=== PATIENT | female | born 1960 | race Caucasian/White ===

== ENCOUNTER 2023-04-30 09:10 | Emergency (ER) | payer BC ==
[~2023-04-30] VITALS: Ht 167.6 cm; Wt 97.7 kg
[2023-04-30] MEDS ORDERED: methocarbamoL 500 MG TAB PO ONE (10:15)
[2023-04-30] MEDS ORDERED: predniSONE 20 MG TAB PO ONE (10:15)
[2023-04-30] MEDS ORDERED: KETOROLAC 30 MG/ML 1ML VIAL IV ONE (10:15)
[2023-04-30] MEDS ORDERED: IBUP-1022 PO (13:23)
[2023-04-30] MEDS ORDERED: METH-1164 PO (13:23)
[2023-04-30] MEDS ORDERED: PRED20TA PO (13:23)
[2023-04-30 14:05] VITALS: BP 136/79; TEMP 98; O2SAT 96
== END 2023-04-30 14:11 | disposition home or self-care (01) ==
LOC: M ED 09:10 → EDBD 09:10 → M ED 14:11
DX: M25.552 Pain in left hip (principal); M47.816 Spondylosis without myelopathy or radiculopathy, lumbar region; M43.16 Spondylolisthesis, lumbar region; Z96.649 Presence of unspecified artificial hip joint; Z91.040 Latex allergy status
CPT/HCPCS: 72110; 73502; 96374; 99284; J1885; J7512

== ENCOUNTER → 2023-05-03 | Outpatient (CLI) | payer BC ==
[~2023-05-03] MED LIST: IBUP-1022 PO; METH-1164 PO; PRED20TA PO
[2023-05-03 13:42] LABS: BASO # 0.1 10^3/uL (0.0-0.2); BASO % 0.7 % (0.0-1.0); EOS # 0.1 10^3/uL (0.0-0.5); EOS % 1.5 % (0.0-3.0); HEMATOCRIT 43.6 % (36.0-47.0); LYMPH # 2.4 10^3/uL (1.5-5.0); LYMPH % 27.6 % (24.0-44.0); MEAN CORPUSCULAR HEMOGLOBIN 30.5 pg (27.0-33.0); MEAN CORPUSCULAR HGB CONC 32.1 g/dl (32.0-36.5); MONO # 0.9 10^3/uL (0.0-0.8); NEUTROPHILS # 5.1 10^3/uL (1.5-8.5); NEUTROPHILS % 59.9 % (36.0-66.0); PLATELET COUNT, AUTOMATED 325 10^3/uL (150-450); RED BLOOD COUNT 4.59 10^6/uL (4.00-5.40); WHITE BLOOD COUNT 8.6 10^3/uL (4.0-10.0)
[2023-05-03 14:17] LABS: ALBUMIN 3.7 G/DL (3.2-5.2); ALKALINE PHOSPHATASE 67 U/L (46-116); ALT/SGPT 22 U/L (7.0-40); AST/SGOT 20 U/L (<34); BILIRUBIN,TOTAL 0.5 MG/DL (0.3-1.2); BLOOD UREA NITROGEN 20 MG/DL (9-23); CALCIUM LEVEL 8.8 MG/DL (8.3-10.6); CARBON DIOXIDE LEVEL 29 MMOL/L (20-31); CHLORIDE LEVEL 103 MMOL/L (98-107); CHOLESTEROL LEVEL 248 MG/DL (<200); CHOLESTEROL RISK RATIO 3.55 (<5); CREATININE FOR GFR 0.85 MG/DL (0.55-1.30); GLOMERULAR FILTRATION RATE > 60.0 (>45); GLUCOSE, FASTING 87 MG/DL (74-106); HDL CHOLESTEROL 69.7 MG/DL (>40); LDL CHOLESTEROL 155.7 MG/DL (<100); NON-HDL-C 178.3 MG/DL; POTASSIUM SERUM 4.4 MMOL/L (3.5-5.1); SODIUM LEVEL 139 MMOL/L (136-145); TOTAL PROTEIN 6.5 G/DL (5.7-8.2); TRIGLYCERIDES LEVEL 113 MG/DL (<150)
== END ==
LOC: M LAB 12:26
PROVIDERS: ATTEND Physician Assistant
DX: E78.5 Hyperlipidemia, unspecified (principal)

== ENCOUNTER 2023-06-18 16:13 | Emergency (ER) | payer BC ==
[~2023-06-18] VITALS: Ht 167.6 cm; Wt 102.0 kg
[2023-06-18] MEDS ORDERED: MELO15TA28 PO (16:29)
[2023-06-18] MEDS ORDERED: CARB20TA PO (16:29)
[2023-06-18] MEDS ORDERED: LISI20TA33 PO (16:29)
[2023-06-18] MEDS ORDERED: AMOXICILLIN 500 MG CAP PO ONE (19:30)
[2023-06-18] MEDS ORDERED: AMOX500C PO (19:32)
[2023-06-18 19:43] VITALS: BP 163/94; TEMP 98.1; O2SAT 99
== END 2023-06-18 19:44 | disposition home or self-care (01) ==
LOC: M ED 16:13
DX: K04.7 Periapical abscess without sinus (principal); I10 Essential (primary) hypertension; Z91.040 Latex allergy status; Z79.2 Long term (current) use of antibiotics; Z79.899 Other long term (current) drug therapy

== ENCOUNTER 2023-09-16 21:13 | Emergency (ER) | payer BC ==
[~2023-09-16] VITALS: Ht 168.9 cm; Wt 100.0 kg
[~2023-09-16 21:13] MED LIST changes: +AMOX500C PO; +CARB20TA PO; +LISI20TA33 PO; +MELO15TA28 PO
[2023-09-16 22:03] LABS: BASO % 0.1 % (0.0-1.0); EOS % 0.6 % (0.0-3.0); HEMATOCRIT 43.5 % (36.0-47.0); HEMOGLOBIN 14.6 g/dl (12.0-15.5); LYMPH # 0.9 10^3/uL (1.5-5.0); LYMPH % 13.4 % (24.0-44.0); MEAN CORPUSCULAR HEMOGLOBIN 30.7 pg (27.0-33.0); MEAN CORPUSCULAR HGB CONC 33.6 g/dl (32.0-36.5); MEAN CORPUSCULAR VOLUME 91.6 fl (80.0-96.0); MONO # 0.6 10^3/uL (0.0-0.8); MONO % 8.7 % (2.0-8.0); NEUTROPHILS # 5.4 10^3/uL (1.5-8.5); NEUTROPHILS % 76.9 % (36.0-66.0); PLATELET COUNT, AUTOMATED 234 10^3/uL (150-450); RED BLOOD COUNT 4.75 10^6/uL (4.00-5.40)
[2023-09-16] MEDS: KETOROLAC 30 MG/ML 1ML VIAL IV ONE (22:32)
[2023-09-16 22:35] LABS: LIPASE 23 U/L (12-53)
[2023-09-16 22:42] LABS: CPK CREATINE PHOSPHOKINASE 112 U/L (34-145)
[2023-09-16 22:47] LABS: ALBUMIN 3.4 G/DL (3.2-5.2); ALKALINE PHOSPHATASE 59 U/L (46-116); ALT/SGPT 25 U/L (7.0-40); AST/SGOT 24 U/L (<34); BILIRUBIN,TOTAL 0.4 MG/DL (0.3-1.2); BLOOD UREA NITROGEN 12 MG/DL (9-23); CALCIUM LEVEL 8.4 MG/DL (8.3-10.6); CARBON DIOXIDE LEVEL 23 MMOL/L (20-31); CHLORIDE LEVEL 104 MMOL/L (98-107); CK-MB VALUE MASS < 1.0 NG/ML (<3.6); CREATININE FOR GFR 0.61 MG/DL (0.55-1.30); GLOMERULAR FILTRATION RATE > 60.0 (>45); GLUCOSE, FASTING 116 MG/DL (74-106); MB/CK RELATIVE INDEX 0.89 (< OR =4); POTASSIUM SERUM 3.9 MMOL/L (3.5-5.1); SODIUM LEVEL 136 MMOL/L (136-145); TOTAL PROTEIN 6.1 G/DL (5.7-8.2)
[2023-09-16] MEDS ORDERED: ISOVUE-370 76% 100ML VIAL As Ordered ONE (23:02)
[2023-09-16 23:13] LABS: CK-MB VALUE MASS < 1.0 NG/ML (<3.6)
[2023-09-16 23:15] LABS: CPK CREATINE PHOSPHOKINASE 104 U/L (34-145); MB/CK RELATIVE INDEX 0.96 (< OR =4)
[2023-09-16] MEDS ORDERED: ALBU8.5H INH (23:42)
[2023-09-16] MEDS ORDERED: VITAD1000T PO (23:42)
[2023-09-16] MEDS ORDERED: THERTAB19 PO (23:42)
[2023-09-16] MEDS ORDERED: OMEG10002 PO (23:42)
[2023-09-16] MEDS ORDERED: FLUT1BLS17 INH (23:42)
[2023-09-16] MEDS ORDERED: MELO7.5T35 PO (23:42)
[2023-09-16] MEDS ORDERED: HOME MED LIST COMPLETE! XX SCH (23:50)
[2023-09-17] MEDS ORDERED: PANT-23 PO (01:04)
[2023-09-17 01:30] VITALS: BP 133/74; TEMP 98.4; O2SAT 96
[2023-09-17] MEDS: PANTOPRAZOLE 40MG VIAL IV ONE (01:50)
== END 2023-09-17 02:20 | disposition home or self-care (01) ==
LOC: M ED 21:13
DX: K29.80 Duodenitis without bleeding (principal); I77.4 Celiac artery compression syndrome; R94.31 Abnormal electrocardiogram [ECG] [EKG]; M54.50 Low back pain, unspecified; I10 Essential (primary) hypertension; F10.10 Alcohol abuse, uncomplicated; Z91.040 Latex allergy status; Z79.51 Long term (current) use of inhaled steroids; Z79.810 Long term (current) use of selective estrogen receptor modulators (SERMs); Z79.899 Other long term (current) drug therapy
CPT/HCPCS: 71045; 71275; 74177; 80053; 81001; 82550; 82553; 83690; 84484; 85025; 87086; 93005; 93041; 94760; 96374; 96375; 99285; C9113; J1885; Q9967

== ENCOUNTER → 2023-09-27 | Outpatient (REF) | payer BC ==
[~2023-09-27] MED LIST changes: +ALBU8.5H INH; +FLUT1BLS17 INH; +MELO7.5T35 PO; +OMEG10002 PO; +PANT-23 PO; +THERTAB19 PO; +VITAD1000T PO
== END ==
LOC: M LAB REF 15:13
PROVIDERS: ATTEND Surgery
DX: R19.7 Diarrhea, unspecified (principal)

== ENCOUNTER → 2023-10-22 | Outpatient (CLI) | payer BC | LOC: M RAD 14:58 | PROVIDERS: ATTEND Physician Assistant | DX: R10.9 Unspecified abdominal pain (principal); D72.829 Elevated white blood cell count, unspecified ==

== ENCOUNTER → 2023-11-24 | Outpatient (CLI) | payer BC ==
[2023-11-24 15:59] LABS: HEMATOCRIT 38.4 % (36.0-47.0); HEMOGLOBIN 12.5 g/dl (12.0-15.5); MEAN CORPUSCULAR HEMOGLOBIN 30.6 pg (27.0-33.0); MEAN CORPUSCULAR HGB CONC 32.6 g/dl (32.0-36.5); MEAN CORPUSCULAR VOLUME 94.1 fl (80.0-96.0); PLATELET COUNT, AUTOMATED 318 10^3/uL (150-450); RED BLOOD COUNT 4.08 10^6/uL (4.00-5.40); WHITE BLOOD COUNT 8.6 10^3/uL (4.0-10.0)
[2023-11-24 16:28] LABS: ALBUMIN 3.9 G/DL (3.2-5.2); BILIRUBIN,TOTAL 0.4 MG/DL (0.3-1.2); CALCIUM LEVEL 9.3 MG/DL (8.3-10.6); CREATININE FOR GFR 1.25 MG/DL (0.55-1.30); GLOMERULAR FILTRATION RATE 45.8 (>45); POTASSIUM SERUM 4.2 MMOL/L (3.5-5.1); TOTAL PROTEIN 6.7 G/DL (5.7-8.2)
== END ==
LOC: M LAB 15:15
PROVIDERS: ATTEND Physician Assistant
DX: Z01.818 Encounter for other preprocedural examination (principal)

== ENCOUNTER 2023-12-29 18:18 | Inpatient (IN) | payer BC ==
[~2023-12-29] VITALS: Ht 167.6 cm; Wt 98.0 kg
[2023-12-29] MEDS: ACETAMINOPHEN 325 MG TAB PO ONE ×2 (19:05→19:55)
[2023-12-29 19:14] LABS: BASO % 0.1 % (0.0-1.0); HEMATOCRIT 37.1 % (36.0-47.0); HEMOGLOBIN 12.3 g/dl (12.0-15.5); LYMPH # 0.7 10^3/uL (1.5-5.0); LYMPH % 2.3 % (24.0-44.0); MEAN CORPUSCULAR HEMOGLOBIN 30.9 pg (27.0-33.0); MEAN CORPUSCULAR HGB CONC 33.2 g/dl (32.0-36.5); MEAN CORPUSCULAR VOLUME 93.2 fl (80.0-96.0); MONO # 1.6 10^3/uL (0.0-0.8); MONO % 5.3 % (2.0-8.0); NEUTROPHILS # 27.1 10^3/uL (1.5-8.5); NEUTROPHILS % 91.6 % (36.0-66.0); PLATELET COUNT, AUTOMATED 297 10^3/uL (150-450); RED BLOOD COUNT 3.98 10^6/uL (4.00-5.40); WHITE BLOOD COUNT 29.6 10^3/uL (4.0-10.0)
[2023-12-29 19:25] LABS: INR 1.16; PARTIAL THROMBOPLASTIN TIME 32.1 SECONDS (24.8-34.2); PROTHROMBIN TIME 14.5 SECONDS (12.5-14.5)
[2023-12-29 19:26] LABS: APPEARANCE, URINE HAZY (CLEAR); BACTERIA, URINE AUTO 1+ (NEGATIVE); BILIRUBIN, URINE AUTO NEGATIVE (NEGATIVE); BLOOD, URINE BLOOD 2+ (NEGATIVE); COLOR, URINE AMBER (YELLOW); GLUCOSE, URINE (UA) AUTO NEGATIVE (NEGATIVE); KETONE, URINE AUTO NEGATIVE (NEGATIVE); LEUKOCYTE ESTERASE, URINE AUTO NEGATIVE (NEGATIVE); MUCUS, URINE SMALL (NEGATIVE); NITRITE, URINE AUTO NEGATIVE (NEGATIVE); PROTEIN, URINE AUTO 2+ mg/dL (NEGATIVE); RBC, URINE AUTO 39 /HPF (0-3); SPECIFIC GRAVITY URINE AUTO 1.013 (1.002-1.035); SQUAMOUS EPITHELIAL CELL UR AU 0 /HPF (0-6); UROBILINOGEN, URINE AUTO 0.2 mg/dL (0.0-2.0); WBC, URINE AUTO 0 /HPF (0-3)
[2023-12-29 19:26] LABS: ABG BASE EXCESS 0.8 (-2.0-2.0); ABG HCO3 23.2 MMOL/L (22.0-26.0); ABG O2 SATURATION 97.6 % (95.0-99.0); ABG PARTIAL PRESSURE CO2 30.5 mmHg (35.0-45.0); ABG PARTIAL PRESSURE O2 90.2 mmHg (75.0-100.0); ABG STANDARD HCO3 25.2 MMOL/L. (22.0-26.0); ABG TOTAL CO2 24.1 MMOL/L (23.0-31.0); ABG pH (ARTERIAL) 7.499 UNITS (7.350-7.450)
[2023-12-29 19:29] LABS: APPEARANCE, URINE HAZY (CLEAR); BACTERIA, URINE AUTO NEGATIVE (NEGATIVE); BILIRUBIN, URINE AUTO NEGATIVE (NEGATIVE); BLOOD, URINE BLOOD 2+ (NEGATIVE); COLOR, URINE YELLOW (YELLOW); GLUCOSE, URINE (UA) AUTO NEGATIVE (NEGATIVE); KETONE, URINE AUTO NEGATIVE (NEGATIVE); LEUKOCYTE ESTERASE, URINE AUTO TRACE (NEGATIVE); MUCUS, URINE SMALL (NEGATIVE); NITRITE, URINE AUTO NEGATIVE (NEGATIVE); PROTEIN, URINE AUTO 2+ mg/dL (NEGATIVE); RBC, URINE AUTO 5 /HPF (0-3); SPECIFIC GRAVITY URINE AUTO 1.012 (1.002-1.035); SQUAMOUS EPITHELIAL CELL UR AU 0 /HPF (0-6); UROBILINOGEN, URINE AUTO 0.2 mg/dL (0.0-2.0); WBC, URINE AUTO 11 /HPF (0-3)
[2023-12-29] MEDS ORDERED: VANCOMYCIN HCL 2,000 MG in D5W 500 ML IV ONE (19:30)
[2023-12-29 19:35] LABS: C REACTIVE PROTEIN QUANTITATIV 12.2 MG/DL (<1.0)
[2023-12-29 19:36] LABS: ALBUMIN 3.1 G/DL (3.2-5.2); BILIRUBIN,DIRECT 0.3 MG/DL (<0.4); BILIRUBIN,TOTAL 0.9 MG/DL (0.3-1.2); CALCIUM LEVEL 8.3 MG/DL (8.3-10.6); CREATININE FOR GFR 1.14 MG/DL (0.55-1.30); GLOMERULAR FILTRATION RATE 50.9 (>45); POTASSIUM SERUM 3.9 MMOL/L (3.5-5.1); TOTAL PROTEIN 6.3 G/DL (5.7-8.2)
[2023-12-29 19:48] LABS: PROCALCITONIN 23.58 ng/ml
[2023-12-29] MEDS: NS 2,990 ML in IV 1 EA IV ONE (19:51)
[2023-12-29] MEDS: PIPERACILLIN/TAZOBACTAM SOD 4.5 GM in D5W MINI-BAG PLUS 50 ML IV ONE (19:52)
[2023-12-29] MEDS: IBUPROFEN 600MG TAB PO ONE (19:54)
[2023-12-29] MEDS: VANCOMYCIN HCL 1,000 MG, VIAL MATE ADAPTER 1 EACH in D5W 250 ML IV ONE ×2 (20:03→21:12)
[2023-12-29] MEDS ORDERED: ISOVUE-370 76% 100ML VIAL As Ordered ONE (20:05)
[2023-12-29] MEDS ORDERED: MOM 30ML SUSPENSION UDC PO PRN (22:45)
[2023-12-29] MEDS: LR 1,000 ML IV SCH (22:55)
[2023-12-29] MEDS ORDERED: LISI40TA4 PO (23:02)
[2023-12-29] MEDS ORDERED: FLOM0.4C39 PO (23:02)
[2023-12-29] MEDS ORDERED: OXYB5TAB14 PO (23:02)
[2023-12-29] MEDS ORDERED: HOME MED LIST COMPLETE! XX SCH (23:05)
[2023-12-30] MEDS: ERTAPENEM SODIUM 1 GM in NS MINI-BAG PLUS 50 ML IV SCH (01:57)
[2023-12-30] MEDS ORDERED: PIPERACILLIN/TAZOBACTAM SOD 4.5 GM in D5W MINI-BAG PLUS 50 ML IV SCH (02:00)
[2023-12-30] MEDS: IPRATROPIUM 0.5MG/ALBUTEROL 2.5MG INH SOL UD 3ML (DUONEB) NEB PRN (02:35)
[2023-12-30 06:01] LABS: HEMATOCRIT 32.7 % (36.0-47.0); HEMOGLOBIN 10.7 g/dl (12.0-15.5); MEAN CORPUSCULAR HEMOGLOBIN 30.3 pg (27.0-33.0); MEAN CORPUSCULAR HGB CONC 32.7 g/dl (32.0-36.5); MEAN CORPUSCULAR VOLUME 92.6 fl (80.0-96.0); PLATELET COUNT, AUTOMATED 199 10^3/uL (150-450); RED BLOOD COUNT 3.53 10^6/uL (4.00-5.40); WHITE BLOOD COUNT 17.2 10^3/uL (4.0-10.0)
[2023-12-30 06:34] LABS: CALCIUM LEVEL 7.3 MG/DL (8.3-10.6); CREATININE FOR GFR 0.99 MG/DL (0.55-1.30); GLOMERULAR FILTRATION RATE 59.9 (>45); POTASSIUM SERUM 3.6 MMOL/L (3.5-5.1)
[2023-12-30] MEDS ORDERED: ALBUTEROL 90 MCG/ACT 8GM HFA INHALER INH PRN (07:05)
[2023-12-30] MEDS ORDERED: carBAMazepine 200MG TABLET PO PRN (07:05)
[2023-12-30] MEDS ORDERED: oxyBUTYnin 5 MG TAB PO PRN (07:05)
[2023-12-30 07:33] LABS: VANCOMYCIN RANDOM 14.6 UG/ML
[2023-12-30] MEDS: VANCOMYCIN HCL 1,000 MG, VIAL MATE ADAPTER 1 EACH in NS 250 ML IV SCH (08:44)
[2023-12-30] MEDS: MAG SULF 1GM/100ML (MAG RUN) 1 GM in IV 1 EA IV SCH (08:46)
[2023-12-30] MEDS: VITAMIN D 1,000 INTERNATIONAL UNITS TABLET PO SCH (08:47)
[2023-12-30] MEDS: HEPARIN SOD (PORCINE) 5000UNITS/ML 1ML VIAL/SYRINGE SC SCH (08:53)
[2023-12-30] MEDS: ADVAIR HFA 230/21MCG INHALER INH SCH (10:00)
[2023-12-30] MEDS: ACETAMINOPHEN TAB 650MG DOSE (2X325MG) PO PRN (11:58)
[2023-12-30] MEDS: ACETAMINOPHEN 325 MG TAB PO ONE (13:27)
[2023-12-30] MEDS: LACTOBACILLUS ACIDOPHILUS CAP (BACID) PO SCH (14:07)
[2023-12-30] MEDS ORDERED: MAG SULF 1GM/100ML (MAG RUN) 1 GM in IV 1 EA IV SCH (16:00)
[2023-12-30] MEDS: ACETAMINOPHEN 500 MG TAB PO PRN (18:48)
[2023-12-30 20:50] VITALS: BP 96/57; TEMP 97.5; O2SAT 93
[2023-12-30 21:01] VITALS: BP 100/40
[2023-12-30] MEDS: TAMSULOSIN 0.4 MG CAP PO SCH (21:20)
[2023-12-31] VITALS (12 sets, daily range): BP systolic 112–153; BP diastolic 63–88; TEMP 97.2–101.8; O2SAT 90–97
[2023-12-31 06:13] LABS: HEMATOCRIT 28.9 % (36.0-47.0); HEMOGLOBIN 9.6 g/dl (12.0-15.5); MEAN CORPUSCULAR HEMOGLOBIN 30.5 pg (27.0-33.0); MEAN CORPUSCULAR HGB CONC 33.2 g/dl (32.0-36.5); MEAN CORPUSCULAR VOLUME 91.7 fl (80.0-96.0); PLATELET COUNT, AUTOMATED 179 10^3/uL (150-450); RED BLOOD COUNT 3.15 10^6/uL (4.00-5.40); WHITE BLOOD COUNT 12.8 10^3/uL (4.0-10.0)
[2023-12-31 06:30] LABS: BLOOD UREA NITROGEN 16 MG/DL (9-23); CALCIUM LEVEL 7.6 MG/DL (8.3-10.6); CARBON DIOXIDE LEVEL 25 MMOL/L (20-31); CHLORIDE LEVEL 107 MMOL/L (98-107); CREATININE FOR GFR 0.93 MG/DL (0.55-1.30); GLOMERULAR FILTRATION RATE > 60.0 (>45); GLUCOSE, FASTING 119 MG/DL (74-106); MAGNESIUM LEVEL 2.1 MG/DL (1.8-2.4); SODIUM LEVEL 138 MMOL/L (136-145)
[2023-12-31 06:45] LABS: LYMPHOCYTES 3 % (16-44); MONOCYTES 3 % (0-5); NEUTROPHILS 86 % (28-66); PLATELET ESTIMATE NORMAL (NORMAL)
[2023-12-31] MEDS: MORPHINE 4 MG/ML 1ML VIAL IV PRN (09:11)
[2023-12-31] MEDS ORDERED: SODIUM CHLORIDE 0.9% INJ 10 ML SYR IV PRN (17:15)
[2023-12-31] MEDS: SODIUM CHLORIDE 0.9% INJ 10 ML SYR IV SCH (17:46)
[2024-01-01] VITALS (7 sets, daily range): BP systolic 138–141; BP diastolic 71–82; TEMP 97.7–100.6; O2SAT 92–95
[2024-01-01 06:20] LABS: HEMATOCRIT 26.7 % (36.0-47.0); MEAN CORPUSCULAR HEMOGLOBIN 30.6 pg (27.0-33.0); MEAN CORPUSCULAR HGB CONC 33.7 g/dl (32.0-36.5); MEAN CORPUSCULAR VOLUME 90.8 fl (80.0-96.0); PLATELET COUNT, AUTOMATED 187 10^3/uL (150-450); RED BLOOD COUNT 2.94 10^6/uL (4.00-5.40); WHITE BLOOD COUNT 10.3 10^3/uL (4.0-10.0)
[2024-01-01 06:51] LABS: BLOOD UREA NITROGEN 11 MG/DL (9-23); CALCIUM LEVEL 7.6 MG/DL (8.3-10.6); CARBON DIOXIDE LEVEL 26 MMOL/L (20-31); CHLORIDE LEVEL 107 MMOL/L (98-107); CREATININE FOR GFR 0.76 MG/DL (0.55-1.30); GLOMERULAR FILTRATION RATE > 60.0 (>45); GLUCOSE, FASTING 99 MG/DL (74-106); MAGNESIUM LEVEL 1.8 MG/DL (1.8-2.4); POTASSIUM SERUM 3.5 MMOL/L (3.5-5.1); SODIUM LEVEL 138 MMOL/L (136-145)
[2024-01-01 06:52] LABS: EOSINOPHILS 1 % (0-3); LYMPHOCYTES 8 % (16-44); MONOCYTES 3 % (0-5); NEUTROPHILS 85 % (28-66)
[2024-01-01 06:55] LABS: PLATELET ESTIMATE NORMAL (NORMAL)
[2024-01-01] MEDS: PANTOPRAZOLE 40MG VIAL IV SCH (13:52)
[2024-01-02 04:00] VITALS: BP 129/68; TEMP 97.5; O2SAT 90
[2024-01-02 06:10] LABS: BASO % 0.4 % (0.0-1.0); EOS # 0.3 10^3/uL (0.0-0.5); EOS % 2.4 % (0.0-3.0); HEMOGLOBIN 9.1 g/dl (12.0-15.5); LYMPH # 1.3 10^3/uL (1.5-5.0); LYMPH % 12.9 % (24.0-44.0); MEAN CORPUSCULAR HEMOGLOBIN 29.4 pg (27.0-33.0); MEAN CORPUSCULAR HGB CONC 32.5 g/dl (32.0-36.5); MEAN CORPUSCULAR VOLUME 90.6 fl (80.0-96.0); MONO # 1.3 10^3/uL (0.0-0.8); MONO % 12.8 % (2.0-8.0); NEUTROPHILS # 7.3 10^3/uL (1.5-8.5); NEUTROPHILS % 70.7 % (36.0-66.0); PLATELET COUNT, AUTOMATED 230 10^3/uL (150-450); RED BLOOD COUNT 3.09 10^6/uL (4.00-5.40); WHITE BLOOD COUNT 10.3 10^3/uL (4.0-10.0)
[2024-01-02 06:41] LABS: BLOOD UREA NITROGEN 9 MG/DL (9-23); CALCIUM LEVEL 7.7 MG/DL (8.3-10.6); CARBON DIOXIDE LEVEL 26 MMOL/L (20-31); CHLORIDE LEVEL 108 MMOL/L (98-107); CREATININE FOR GFR 0.76 MG/DL (0.55-1.30); GLOMERULAR FILTRATION RATE > 60.0 (>45); GLUCOSE, FASTING 89 MG/DL (74-106); MAGNESIUM LEVEL 1.6 MG/DL (1.8-2.4); POTASSIUM SERUM 3.5 MMOL/L (3.5-5.1); SODIUM LEVEL 141 MMOL/L (136-145)
[2024-01-02] MEDS: MAGNESIUM OXIDE 400MG TAB (MAG-OX) PO SCH (07:59)
[2024-01-02] MEDS ORDERED: AMIKACIN 1000 MG/4 ML IV ONE (08:50)
[2024-01-02] MEDS ORDERED: MEROPENEM INJ 2 GM in NS 100 ML IV SCH (08:50)
[2024-01-02 09:50] LABS: ERYTHROCYTE SEDIMENTATION RATE 56 mm/hr (0-30)
[2024-01-02 10:00] LABS: PROCALCITONIN 3.88 ng/ml
[2024-01-02] MEDS: MEROPENEM INJ 1 GM in IV 1 EA IV SCH (11:06)
[2024-01-02 11:08] VITALS: TEMP 99.9
[2024-01-02 12:00] VITALS: BP 151/79; TEMP 98.8; O2SAT 92
[2024-01-02] MEDS: D5W IV ONE (12:36)
[2024-01-02] MEDS: AMIKACIN SULFATE IV ONE (12:36)
[2024-01-02 19:45] VITALS: BP 127/63; TEMP 99.8; O2SAT 92
[2024-01-03] VITALS (9 sets, daily range): BP systolic 144–155; BP diastolic 72–88; TEMP 97–100.7; O2SAT 93–97
[2024-01-03 06:27] LABS: BASO # 0.1 10^3/uL (0.0-0.2); BASO % 0.4 % (0.0-1.0); EOS # 0.2 10^3/uL (0.0-0.5); EOS % 1.5 % (0.0-3.0); HEMATOCRIT 28.1 % (36.0-47.0); HEMOGLOBIN 9.4 g/dl (12.0-15.5); LYMPH # 1.2 10^3/uL (1.5-5.0); LYMPH % 10.2 % (24.0-44.0); MEAN CORPUSCULAR HEMOGLOBIN 30.2 pg (27.0-33.0); MEAN CORPUSCULAR HGB CONC 33.5 g/dl (32.0-36.5); MEAN CORPUSCULAR VOLUME 90.4 fl (80.0-96.0); MONO # 1.6 10^3/uL (0.0-0.8); NEUTROPHILS # 8.3 10^3/uL (1.5-8.5); NEUTROPHILS % 72.1 % (36.0-66.0); PLATELET COUNT, AUTOMATED 261 10^3/uL (150-450); RED BLOOD COUNT 3.11 10^6/uL (4.00-5.40); WHITE BLOOD COUNT 11.5 10^3/uL (4.0-10.0)
[2024-01-03 06:42] LABS: BLOOD UREA NITROGEN 7 MG/DL (9-23); CALCIUM LEVEL 8.1 MG/DL (8.3-10.6); CARBON DIOXIDE LEVEL 28 MMOL/L (20-31); CHLORIDE LEVEL 106 MMOL/L (98-107); CREATININE FOR GFR 0.73 MG/DL (0.55-1.30); GLOMERULAR FILTRATION RATE > 60.0 (>45); GLUCOSE, FASTING 88 MG/DL (74-106); MAGNESIUM LEVEL 1.6 MG/DL (1.8-2.4); POTASSIUM SERUM 3.3 MMOL/L (3.5-5.1); SODIUM LEVEL 141 MMOL/L (136-145)
[2024-01-03] MEDS: POTASSIUM CHLORIDE 10MEQ SR TABLET PO STA (07:57)
[2024-01-03] MEDS: MAG SULF 1GM/100ML (MAG RUN) 1 GM in IV 1 EA IV STA (07:58)
[2024-01-03] MEDS ORDERED: propofoL 200 MG/20 ML VIAL As Ordered ONE (12:28)
[2024-01-03] MEDS ORDERED: LIDOCAINE 2% 100MG/5ML SDV (FOR ANES.) As Ordered ONE (12:28)
[2024-01-03] MEDS ORDERED: NEULUMEX 0.1% SUSPENSION 450ML BOTTLE (FORMERLY VOLUMEN) As Ordered ONE (13:10)
[2024-01-03] MEDS ORDERED: GLUCAGON INJ 1MG VIAL As Ordered ONE (13:44)
[2024-01-03] MEDS: MEROPENEM INJ 1 GM in IV 1 EA IV SCH (15:50)
[2024-01-03] MEDS ORDERED: SODIUM CHLORIDE 0.9% INJ 10 ML SYR IV PRN (17:45)
[2024-01-03] MEDS: SODIUM CHLORIDE 0.9% INJ 10 ML SYR IV SCH (18:10)
[2024-01-04] VITALS (8 sets, daily range): BP systolic 110–146; BP diastolic 62–87; TEMP 97.4–97.7; O2SAT 93–95
[2024-01-04 06:43] LABS: BASO # 0.1 10^3/uL (0.0-0.2); BASO % 0.5 % (0.0-1.0); EOS # 0.1 10^3/uL (0.0-0.5); HEMATOCRIT 28.4 % (36.0-47.0); HEMOGLOBIN 9.6 g/dl (12.0-15.5); LYMPH # 1.8 10^3/uL (1.5-5.0); LYMPH % 13.7 % (24.0-44.0); MEAN CORPUSCULAR HEMOGLOBIN 30.2 pg (27.0-33.0); MEAN CORPUSCULAR HGB CONC 33.8 g/dl (32.0-36.5); MEAN CORPUSCULAR VOLUME 89.3 fl (80.0-96.0); MONO # 1.9 10^3/uL (0.0-0.8); MONO % 14.2 % (2.0-8.0); NEUTROPHILS # 8.7 10^3/uL (1.5-8.5); NEUTROPHILS % 66.4 % (36.0-66.0); PLATELET COUNT, AUTOMATED 323 10^3/uL (150-450); RED BLOOD COUNT 3.18 10^6/uL (4.00-5.40); WHITE BLOOD COUNT 13.1 10^3/uL (4.0-10.0)
[2024-01-04 07:11] LABS: BLOOD UREA NITROGEN 7 MG/DL (9-23); CARBON DIOXIDE LEVEL 27 MMOL/L (20-31); CHLORIDE LEVEL 102 MMOL/L (98-107); CREATININE FOR GFR 0.66 MG/DL (0.55-1.30); GLOMERULAR FILTRATION RATE > 60.0 (>45); GLUCOSE, FASTING 81 MG/DL (74-106); MAGNESIUM LEVEL 1.6 MG/DL (1.8-2.4); POTASSIUM SERUM 3.5 MMOL/L (3.5-5.1); SODIUM LEVEL 138 MMOL/L (136-145)
[2024-01-04] MEDS: MAG SULF 1GM/100ML (MAG RUN) 1 GM in IV 1 EA IV SCH (07:51)
[2024-01-04] MEDS: ERTAPENEM SODIUM 1 GM in NS MINI-BAG PLUS 50 ML IV SCH (20:17)
[2024-01-05] VITALS (7 sets, daily range): BP systolic 108–137; BP diastolic 56–78; TEMP 96.8–97.7; O2SAT 89–95
[2024-01-05 06:07] LABS: BASO % 0.3 % (0.0-1.0); EOS # 0.2 10^3/uL (0.0-0.5); EOS % 1.4 % (0.0-3.0); HEMATOCRIT 29.2 % (36.0-47.0); HEMOGLOBIN 9.5 g/dl (12.0-15.5); LYMPH # 2.1 10^3/uL (1.5-5.0); LYMPH % 16.1 % (24.0-44.0); MEAN CORPUSCULAR HEMOGLOBIN 29.8 pg (27.0-33.0); MEAN CORPUSCULAR HGB CONC 32.5 g/dl (32.0-36.5); MEAN CORPUSCULAR VOLUME 91.5 fl (80.0-96.0); MONO # 1.4 10^3/uL (0.0-0.8); MONO % 10.9 % (2.0-8.0); NEUTROPHILS # 9.1 10^3/uL (1.5-8.5); NEUTROPHILS % 68.4 % (36.0-66.0); PLATELET COUNT, AUTOMATED 408 10^3/uL (150-450); RED BLOOD COUNT 3.19 10^6/uL (4.00-5.40); WHITE BLOOD COUNT 13.3 10^3/uL (4.0-10.0)
[2024-01-05 06:38] LABS: BLOOD UREA NITROGEN 9 MG/DL (9-23); CARBON DIOXIDE LEVEL 32 MMOL/L (20-31); CHLORIDE LEVEL 103 MMOL/L (98-107); CREATININE FOR GFR 0.72 MG/DL (0.55-1.30); GLOMERULAR FILTRATION RATE > 60.0 (>45); GLUCOSE, FASTING 91 MG/DL (74-106); MAGNESIUM LEVEL 1.9 MG/DL (1.8-2.4); POTASSIUM SERUM 3.8 MMOL/L (3.5-5.1); SODIUM LEVEL 140 MMOL/L (136-145)
[2024-01-05 09:15] LABS: PROCALCITONIN 1.09 ng/ml
[2024-01-06 04:30] VITALS: BP 134/72; TEMP 97.5; O2SAT 93
[2024-01-06 06:30] LABS: BASO % 0.3 % (0.0-1.0); EOS # 0.3 10^3/uL (0.0-0.5); EOS % 1.7 % (0.0-3.0); HEMATOCRIT 28.4 % (36.0-47.0); HEMOGLOBIN 9.2 g/dl (12.0-15.5); LYMPH # 2.2 10^3/uL (1.5-5.0); LYMPH % 14.3 % (24.0-44.0); MEAN CORPUSCULAR HEMOGLOBIN 29.8 pg (27.0-33.0); MEAN CORPUSCULAR HGB CONC 32.4 g/dl (32.0-36.5); MEAN CORPUSCULAR VOLUME 91.9 fl (80.0-96.0); MONO # 1.4 10^3/uL (0.0-0.8); NEUTROPHILS # 10.9 10^3/uL (1.5-8.5); NEUTROPHILS % 72.4 % (36.0-66.0); PLATELET COUNT, AUTOMATED 480 10^3/uL (150-450); RED BLOOD COUNT 3.09 10^6/uL (4.00-5.40)
[2024-01-06 08:00] VITALS: BP 130/73; TEMP 97.3; O2SAT 95
[2024-01-06 08:40] LABS: BLOOD UREA NITROGEN 8 MG/DL (9-23); CALCIUM LEVEL 7.9 MG/DL (8.3-10.6); CARBON DIOXIDE LEVEL 31 MMOL/L (20-31); CHLORIDE LEVEL 103 MMOL/L (98-107); CREATININE FOR GFR 0.71 MG/DL (0.55-1.30); GLOMERULAR FILTRATION RATE > 60.0 (>45); GLUCOSE, FASTING 87 MG/DL (74-106); SODIUM LEVEL 139 MMOL/L (136-145)
[2024-01-06] MEDS: PANTOPRAZOLE 40MG TAB (PROTONIX) PO SCH (08:47)
[2024-01-06] MEDS: COLCHICINE 0.6 MG TABLET PO ONE ×2 (10:21→11:26)
[2024-01-06 11:40] LABS: URIC ACID 5.9 MG/DL (3.1-7.8)
[2024-01-06 12:00] VITALS: BP 136/78; TEMP 97.3; O2SAT 96
[2024-01-06] MEDS ORDERED: RISATAB3 PO ×2 (13:25→13:48)
[2024-01-06] MEDS ORDERED: COLC0.6T47 PO ×2 (13:25→13:47)
[2024-01-06] MEDS ORDERED: ERTA1INJ3 IV (13:25)
[2024-01-06] MEDS ORDERED: HEPAINJ4 IV ×2 (13:25)
[2024-01-06] MEDS ORDERED: SLF IV ×2 (13:25)
[2024-01-07] MEDS ORDERED: COLCHICINE 0.6 MG TABLET PO SCH (09:00)
== END 2024-01-06 16:05 | disposition home health service (06) | DRG 720 ==
LOC: M ED 18:18 → EDBD 18:18 → M ED INP 22:45 → M MSPAV 12-30 20:50
PROVIDERS: ADMIT Internal Medicine; ATTEND Internal Medicine
PROC: 0DJ08ZZ Inspection of Upper Intestinal Tract, Via Natural or Artificial Opening Endoscopic (ICD-10-PCS; principal; 2024-01-03 08:30)
DX: A41.51 Sepsis due to Escherichia coli [E. coli] (principal); K68.2 Retroperitoneal fibrosis; I77.4 Celiac artery compression syndrome; E83.42 Hypomagnesemia; K56.7 Ileus, unspecified; N13.9 Obstructive and reflux uropathy, unspecified; N13.6 Pyonephrosis; R65.20 Severe sepsis without septic shock; I10 Essential (primary) hypertension; J45.909 Unspecified asthma, uncomplicated; K21.9 Gastro-esophageal reflux disease without esophagitis; R93.3 Abnormal findings on diagnostic imaging of other parts of digestive tract; G50.0 Trigeminal neuralgia; B96.20 Unspecified Escherichia coli [E. coli] as the cause of diseases classified elsewhere; N11.9 Chronic tubulo-interstitial nephritis, unspecified; R00.8 Other abnormalities of heart beat; M10.9 Gout, unspecified; Z79.899 Other long term (current) drug therapy; Z96.643 Presence of artificial hip joint, bilateral; Z88.6 Allergy status to analgesic agent; Z91.040 Latex allergy status; Z87.891 Personal history of nicotine dependence

== ENCOUNTER → 2024-01-10 | Outpatient (REF) | payer BC ==
[~2024-01-10] MED LIST changes: +COLC0.6T47 PO; +ERTA1INJ3 IV; +FLOM0.4C39 PO; +HEPAINJ4 IV; +LISI40TA4 PO; +OXYB5TAB14 PO; +RISATAB3 PO; +SLF IV
[2024-01-10 13:34] LABS: BASO # 0.1 10^3/uL (0.0-0.2); BASO % 0.4 % (0.0-1.0); EOS # 0.4 10^3/uL (0.0-0.5); EOS % 2.7 % (0.0-3.0); HEMOGLOBIN 10.7 g/dl (12.0-15.5); LYMPH % 14.9 % (24.0-44.0); MEAN CORPUSCULAR HEMOGLOBIN 29.7 pg (27.0-33.0); MEAN CORPUSCULAR HGB CONC 31.5 g/dl (32.0-36.5); MEAN CORPUSCULAR VOLUME 94.4 fl (80.0-96.0); MONO # 1.7 10^3/uL (0.0-0.8); MONO % 12.5 % (2.0-8.0); NEUTROPHILS # 9.3 10^3/uL (1.5-8.5); NEUTROPHILS % 68.3 % (36.0-66.0); PLATELET COUNT, AUTOMATED 623 10^3/uL (150-450); WHITE BLOOD COUNT 13.7 10^3/uL (4.0-10.0)
[2024-01-10 14:01] LABS: BLOOD UREA NITROGEN 11 MG/DL (9-23); CALCIUM LEVEL 8.6 MG/DL (8.3-10.6); CARBON DIOXIDE LEVEL 26 MMOL/L (20-31); CHLORIDE LEVEL 105 MMOL/L (98-107); CREATININE FOR GFR 0.79 MG/DL (0.55-1.30); GLOMERULAR FILTRATION RATE > 60.0 (>45); GLUCOSE, FASTING 79 MG/DL (74-106); POTASSIUM SERUM 4.6 MMOL/L (3.5-5.1); SODIUM LEVEL 139 MMOL/L (136-145)
== END ==
LOC: M LAB REF 12:47
PROVIDERS: ATTEND Family Medicine
DX: N13.2 Hydronephrosis with renal and ureteral calculous obstruction (principal)

== ENCOUNTER 2024-01-26 16:02 | Emergency (ER) | payer BC ==
[2024-01-26 17:21] LABS: BASO % 0.2 % (0.0-1.0); EOS % 0.2 % (0.0-3.0); HEMATOCRIT 31.1 % (36.0-47.0); LYMPH # 1.2 10^3/uL (1.5-5.0); LYMPH % 6.9 % (24.0-44.0); MEAN CORPUSCULAR HEMOGLOBIN 28.9 pg (27.0-33.0); MEAN CORPUSCULAR HGB CONC 32.2 g/dl (32.0-36.5); MEAN CORPUSCULAR VOLUME 89.9 fl (80.0-96.0); MONO # 2.5 10^3/uL (0.0-0.8); MONO % 14.6 % (2.0-8.0); NEUTROPHILS # 13.1 10^3/uL (1.5-8.5); NEUTROPHILS % 77.6 % (36.0-66.0); PLATELET COUNT, AUTOMATED 344 10^3/uL (150-450); RED BLOOD COUNT 3.46 10^6/uL (4.00-5.40); WHITE BLOOD COUNT 16.9 10^3/uL (4.0-10.0)
[2024-01-26 17:45] LABS: CALCIUM LEVEL 8.3 MG/DL (8.3-10.6); CREATININE FOR GFR 1.21 MG/DL (0.55-1.30); GLOMERULAR FILTRATION RATE 47.5 (>45); POTASSIUM SERUM 4.1 MMOL/L (3.5-5.1)
[2024-01-26 17:47] LABS: THYROID STIMULATING HORMONE 1.747 uIU/ML (0.55-4.78)
[2024-01-26] MEDS: ACETAMINOPHEN 500 MG TAB PO ONE (18:04)
[2024-01-26 19:15] LABS: ALBUMIN 2.5 G/DL (3.2-5.2); BILIRUBIN,DIRECT 0.4 MG/DL (<0.4); TOTAL PROTEIN 6.5 G/DL (5.7-8.2)
[2024-01-26 19:21] LABS: APPEARANCE, URINE CLOUDY (CLEAR); APPEARANCE, URINE HAZY (CLEAR); BACTERIA, URINE AUTO 3+ (NEGATIVE); BACTERIA, URINE AUTO NEGATIVE (NEGATIVE); BILIRUBIN, URINE AUTO NEGATIVE (NEGATIVE); BLOOD, URINE BLOOD 1+ (NEGATIVE); BLOOD, URINE BLOOD 2+ (NEGATIVE); COLOR, URINE AMBER (YELLOW); GLUCOSE, URINE (UA) AUTO NEGATIVE (NEGATIVE); KETONE, URINE AUTO NEGATIVE (NEGATIVE); KETONE, URINE AUTO TRACE mg/dL (NEGATIVE); LEUKOCYTE ESTERASE, URINE AUTO 3+ (NEGATIVE); MUCUS, URINE SMALL (NEGATIVE); NITRITE, URINE AUTO NEGATIVE (NEGATIVE); PROTEIN, URINE AUTO 3+ mg/dL (NEGATIVE); RBC, URINE AUTO 15 /HPF (0-3); RBC, URINE AUTO 6 /HPF (0-3); SPECIFIC GRAVITY URINE AUTO 1.012 (1.002-1.035); SPECIFIC GRAVITY URINE AUTO 1.019 (1.002-1.035); SQUAMOUS EPITHELIAL CELL UR AU 0 /HPF (0-6); SQUAMOUS EPITHELIAL CELL UR AU 1 /HPF (0-6); WBC, URINE AUTO 22 /HPF (0-3); WBC, URINE AUTO 71 /HPF (0-3)
[2024-01-26] MEDS: NS 1,000 ML IV ONE (19:25)
[2024-01-26 19:32] VITALS: TEMP 97.8
[2024-01-26 19:46] LABS: PROCALCITONIN 0.79 ng/ml
[2024-01-26 20:16] VITALS: BP 109/75; O2SAT 100
== END 2024-01-26 20:43 | disposition left against medical advice (07) ==
LOC: M ED 16:02
DX: R55 Syncope and collapse (principal); N10 Acute pyelonephritis; A41.9 Sepsis, unspecified organism; J44.9 Chronic obstructive pulmonary disease, unspecified; I10 Essential (primary) hypertension; F10.10 Alcohol abuse, uncomplicated; Z91.040 Latex allergy status; Z96.649 Presence of unspecified artificial hip joint; Z79.52 Long term (current) use of systemic steroids; Z79.899 Other long term (current) drug therapy; Z53.9 Procedure and treatment not carried out, unspecified reason

== ENCOUNTER 2024-01-26 21:55 | Inpatient (IN) | payer BC ==
[~2024-01-26] VITALS: Ht 170.2 cm; Wt 91.6 kg
[2024-01-27] MEDS ORDERED: ISOVUE-370 76% 100ML VIAL As Ordered ONE (00:04)
[2024-01-27] MEDS: LR 1,000 ML IV SCH ×2 (00:45→03:56)
[2024-01-27] MEDS ORDERED: HOME MED LIST COMPLETE! XX SCH (01:30)
[2024-01-27 02:41] VITALS: BP 140/79; TEMP 97.2; O2SAT 98
[2024-01-27] MEDS ORDERED: ALBUTEROL 90 MCG/ACT 8GM HFA INHALER INH PRN (02:50)
[2024-01-27] MEDS: ERTAPENEM SODIUM 1 GM in NS MINI-BAG PLUS 50 ML IV ONE (03:24)
[2024-01-27 05:46] LABS: BASO % 0.2 % (0.0-1.0); EOS # 0.1 10^3/uL (0.0-0.5); EOS % 0.4 % (0.0-3.0); HEMATOCRIT 29.7 % (36.0-47.0); HEMOGLOBIN 9.6 g/dl (12.0-15.5); LYMPH # 1.3 10^3/uL (1.5-5.0); LYMPH % 8.1 % (24.0-44.0); MEAN CORPUSCULAR HEMOGLOBIN 29.3 pg (27.0-33.0); MEAN CORPUSCULAR HGB CONC 32.3 g/dl (32.0-36.5); MEAN CORPUSCULAR VOLUME 90.5 fl (80.0-96.0); MONO # 2.1 10^3/uL (0.0-0.8); MONO % 13.2 % (2.0-8.0); NEUTROPHILS % 77.4 % (36.0-66.0); PLATELET COUNT, AUTOMATED 329 10^3/uL (150-450); RED BLOOD COUNT 3.28 10^6/uL (4.00-5.40); WHITE BLOOD COUNT 15.6 10^3/uL (4.0-10.0)
[2024-01-27 06:32] LABS: ALBUMIN 2.2 G/DL (3.2-5.2); BILIRUBIN,TOTAL 0.8 MG/DL (0.3-1.2); CALCIUM LEVEL 8.3 MG/DL (8.3-10.6); CREATININE FOR GFR 1.02 MG/DL (0.55-1.30); GLOMERULAR FILTRATION RATE 57.9 (>45); MAGNESIUM LEVEL 1.7 MG/DL (1.8-2.4); POTASSIUM SERUM 3.8 MMOL/L (3.5-5.1); TOTAL PROTEIN 5.8 G/DL (5.7-8.2)
[2024-01-27] MEDS: ADVAIR HFA 115/21MCG INHALER INH SCH (07:42)
[2024-01-27] MEDS: HEPARIN SOD (PORCINE) 5000UNITS/ML 1ML VIAL/SYRINGE SC SCH (08:01)
[2024-01-27 08:02] VITALS: BP_SYST 107; BP_SYST 110; BP_SYST 116; BP_DIAS 60; BP_DIAS 69; BP_DIAS 70
[2024-01-27 12:00] VITALS: BP 125/67; TEMP 97.9; O2SAT 94
[2024-01-27 20:40] VITALS: BP 108/60; TEMP 98.1; O2SAT 95
[2024-01-28] MEDS: ERTAPENEM SODIUM 1 GM in NS MINI-BAG PLUS 50 ML IV SCH (02:03)
[2024-01-28 04:32] VITALS: BP 136/81; TEMP 98.1; O2SAT 96
[2024-01-28 08:00] VITALS: BP 108/66; TEMP 97.6; O2SAT 96
[2024-01-28 10:48] LABS: BASO % 0.4 % (0.0-1.0); EOS # 0.1 10^3/uL (0.0-0.5); EOS % 1.3 % (0.0-3.0); HEMATOCRIT 30.8 % (36.0-47.0); HEMOGLOBIN 9.6 g/dl (12.0-15.5); LYMPH # 1.1 10^3/uL (1.5-5.0); LYMPH % 10.8 % (24.0-44.0); MEAN CORPUSCULAR HEMOGLOBIN 28.5 pg (27.0-33.0); MEAN CORPUSCULAR HGB CONC 31.2 g/dl (32.0-36.5); MEAN CORPUSCULAR VOLUME 91.4 fl (80.0-96.0); MONO # 1.2 10^3/uL (0.0-0.8); MONO % 12.3 % (2.0-8.0); NEUTROPHILS # 7.3 10^3/uL (1.5-8.5); NEUTROPHILS % 74.2 % (36.0-66.0); PLATELET COUNT, AUTOMATED 351 10^3/uL (150-450); RED BLOOD COUNT 3.37 10^6/uL (4.00-5.40); WHITE BLOOD COUNT 9.9 10^3/uL (4.0-10.0)
[2024-01-28 11:16] LABS: BLOOD UREA NITROGEN 14 MG/DL (9-23); CALCIUM LEVEL 8.9 MG/DL (8.3-10.6); CARBON DIOXIDE LEVEL 28 MMOL/L (20-31); CHLORIDE LEVEL 107 MMOL/L (98-107); CREATININE FOR GFR 0.93 MG/DL (0.55-1.30); GLOMERULAR FILTRATION RATE > 60.0 (>45); GLUCOSE, FASTING 103 MG/DL (74-106); POTASSIUM SERUM 3.8 MMOL/L (3.5-5.1); SODIUM LEVEL 140 MMOL/L (136-145)
[2024-01-28 12:00] VITALS: BP 137/80; TEMP 97.9; O2SAT 94
[2024-01-28 15:47] LABS: HCV RNA QUANTITATION <15 NOT DETECTED IU/mL (NOT DETECTED); HCV RNA log10 <1.18 NOT DETECTED Log IU/mL (NOT DETECTED)
[2024-01-28 20:00] VITALS: BP 132/81; TEMP 97.9; O2SAT 94
[2024-01-28 21:44] LABS: IMMUNOGLOBULIN A 194.9 MG/DL (40-350); IMMUNOGLOBULIN G 1017 MG/DL (650-1600)
[2024-01-29 04:00] VITALS: BP 115/95; TEMP 97.3; O2SAT 90
[2024-01-29 12:00] VITALS: BP 112/78; TEMP 97.5; O2SAT 95
[2024-01-29 13:06] LABS: BASO % 0.4 % (0.0-1.0); EOS # 0.2 10^3/uL (0.0-0.5); EOS % 2.1 % (0.0-3.0); HEMATOCRIT 30.8 % (36.0-47.0); HEMOGLOBIN 9.6 g/dl (12.0-15.5); LYMPH # 1.5 10^3/uL (1.5-5.0); LYMPH % 15.3 % (24.0-44.0); MEAN CORPUSCULAR HEMOGLOBIN 28.6 pg (27.0-33.0); MEAN CORPUSCULAR HGB CONC 31.2 g/dl (32.0-36.5); MEAN CORPUSCULAR VOLUME 91.7 fl (80.0-96.0); MONO # 1.1 10^3/uL (0.0-0.8); MONO % 11.8 % (2.0-8.0); NEUTROPHILS # 6.7 10^3/uL (1.5-8.5); NEUTROPHILS % 68.9 % (36.0-66.0); PLATELET COUNT, AUTOMATED 412 10^3/uL (150-450); RED BLOOD COUNT 3.36 10^6/uL (4.00-5.40); WHITE BLOOD COUNT 9.7 10^3/uL (4.0-10.0)
[2024-01-29 13:38] LABS: BLOOD UREA NITROGEN 12 MG/DL (9-23); CALCIUM LEVEL 8.5 MG/DL (8.3-10.6); CARBON DIOXIDE LEVEL 28 MMOL/L (20-31); CHLORIDE LEVEL 106 MMOL/L (98-107); GLOMERULAR FILTRATION RATE > 60.0 (>45); GLUCOSE, FASTING 100 MG/DL (74-106); POTASSIUM SERUM 3.8 MMOL/L (3.5-5.1); SODIUM LEVEL 140 MMOL/L (136-145)
[2024-01-29] MEDS: MEROPENEM INJ 1 GM in IV 1 EA IV SCH (18:29)
[2024-01-29 19:51] VITALS: BP 106/66; TEMP 97.9; O2SAT 99
[2024-01-30 04:00] VITALS: BP 144/74; TEMP 98.4; O2SAT 96
[2024-01-30] MEDS: ONDANSETRON 4MG 2ML VIAL IV ONE (08:29)
[2024-01-30 12:00] VITALS: BP 87/56; TEMP 97.7; O2SAT 97
[2024-01-30] MEDS: MIDODRINE 5 MG TAB PO ONE (12:58)
[2024-01-30] MEDS: NS 1,000 ML IV ONE ×2 (12:58→14:35)
[2024-01-30 13:23] LABS: BASO # 0.1 10^3/uL (0.0-0.2); BASO % 0.2 % (0.0-1.0); EOS % 0.1 % (0.0-3.0); HEMATOCRIT 29.3 % (36.0-47.0); HEMOGLOBIN 9.5 g/dl (12.0-15.5); LYMPH # 1.5 10^3/uL (1.5-5.0); LYMPH % 6.4 % (24.0-44.0); MEAN CORPUSCULAR HEMOGLOBIN 29.6 pg (27.0-33.0); MEAN CORPUSCULAR HGB CONC 32.4 g/dl (32.0-36.5); MEAN CORPUSCULAR VOLUME 91.3 fl (80.0-96.0); MONO # 1.4 10^3/uL (0.0-0.8); MONO % 6.1 % (2.0-8.0); NEUTROPHILS # 20.3 10^3/uL (1.5-8.5); NEUTROPHILS % 85.2 % (36.0-66.0); PLATELET COUNT, AUTOMATED 430 10^3/uL (150-450); RED BLOOD COUNT 3.21 10^6/uL (4.00-5.40); WHITE BLOOD COUNT 23.8 10^3/uL (4.0-10.0)
[2024-01-30 13:27] LABS: ERYTHROCYTE SEDIMENTATION RATE 78 mm/hr (0-30)
[2024-01-30 13:48] LABS: C REACTIVE PROTEIN QUANTITATIV 9.9 MG/DL (<1.0)
[2024-01-30 13:49] LABS: ALBUMIN 2.4 G/DL (3.2-5.2); BILIRUBIN,TOTAL 0.5 MG/DL (0.3-1.2); CALCIUM LEVEL 8.7 MG/DL (8.3-10.6); CK-MB VALUE MASS < 1.0 NG/ML (<3.6); CREATININE FOR GFR 1.1 MG/DL (0.55-1.30); GLOMERULAR FILTRATION RATE 53.1 (>45); POTASSIUM SERUM 4.1 MMOL/L (3.5-5.1); TOTAL PROTEIN 6.2 G/DL (5.7-8.2)
[2024-01-30 13:50] LABS: CPK CREATINE PHOSPHOKINASE 94 U/L (34-145); MB/CK RELATIVE INDEX 1.06 (< OR =4)
[2024-01-30 13:52] LABS: THYROID STIMULATING HORMONE 0.948 uIU/ML (0.55-4.78)
[2024-01-30 13:53] LABS: CORTISOL BASELINE 28.5 UG/DL (4.3-22.4)
[2024-01-30 13:56] LABS: PROCALCITONIN 5.9 ng/ml
[2024-01-30 16:04] VITALS: BP 110/64
[2024-01-30 20:19] VITALS: BP 102/56; TEMP 97.9; O2SAT 99
[2024-01-31 04:00] VITALS: BP 103/64; TEMP 98.1; O2SAT 94
[2024-01-31 05:57] LABS: BASO # 0.1 10^3/uL (0.0-0.2); BASO % 0.3 % (0.0-1.0); EOS # 0.3 10^3/uL (0.0-0.5); EOS % 1.6 % (0.0-3.0); HEMATOCRIT 27.9 % (36.0-47.0); HEMOGLOBIN 8.7 g/dl (12.0-15.5); LYMPH # 2.4 10^3/uL (1.5-5.0); LYMPH % 13.7 % (24.0-44.0); MEAN CORPUSCULAR HGB CONC 31.2 g/dl (32.0-36.5); MONO # 1.3 10^3/uL (0.0-0.8); MONO % 7.7 % (2.0-8.0); NEUTROPHILS # 13.1 10^3/uL (1.5-8.5); NEUTROPHILS % 75.3 % (36.0-66.0); PLATELET COUNT, AUTOMATED 392 10^3/uL (150-450); WHITE BLOOD COUNT 17.4 10^3/uL (4.0-10.0)
[2024-01-31 06:22] LABS: BLOOD UREA NITROGEN 16 MG/DL (9-23); CALCIUM LEVEL 8.3 MG/DL (8.3-10.6); CARBON DIOXIDE LEVEL 26 MMOL/L (20-31); CHLORIDE LEVEL 109 MMOL/L (98-107); CREATININE FOR GFR 0.91 MG/DL (0.55-1.30); GLOMERULAR FILTRATION RATE > 60.0 (>45); GLUCOSE, FASTING 94 MG/DL (74-106); SODIUM LEVEL 141 MMOL/L (136-145)
[2024-01-31 12:00] VITALS: BP 111/67; TEMP 97.7; O2SAT 95
[2024-01-31] MEDS: LevoFLOXacin 750 MG TABLET PO SCH (18:20)
[2024-01-31] MEDS: ERTAPENEM SODIUM 1 GM in NS MINI-BAG PLUS 50 ML IV SCH (18:20)
[2024-01-31 20:18] VITALS: BP 111/64; TEMP 98.4; O2SAT 95
[2024-02-01 04:00] VITALS: BP 138/89; TEMP 97.9; O2SAT 95
[2024-02-01 06:28] LABS: BASO # 0.1 10^3/uL (0.0-0.2); BASO % 0.4 % (0.0-1.0); EOS # 0.3 10^3/uL (0.0-0.5); EOS % 2.3 % (0.0-3.0); HEMATOCRIT 27.3 % (36.0-47.0); HEMOGLOBIN 8.9 g/dl (12.0-15.5); LYMPH # 2.5 10^3/uL (1.5-5.0); LYMPH % 18.6 % (24.0-44.0); MEAN CORPUSCULAR HEMOGLOBIN 29.7 pg (27.0-33.0); MEAN CORPUSCULAR HGB CONC 32.6 g/dl (32.0-36.5); MONO # 1.3 10^3/uL (0.0-0.8); MONO % 9.9 % (2.0-8.0); NEUTROPHILS # 8.8 10^3/uL (1.5-8.5); NEUTROPHILS % 65.5 % (36.0-66.0); PLATELET COUNT, AUTOMATED 427 10^3/uL (150-450); WHITE BLOOD COUNT 13.4 10^3/uL (4.0-10.0)
[2024-02-01 07:00] LABS: BLOOD UREA NITROGEN 16 MG/DL (9-23); CALCIUM LEVEL 8.4 MG/DL (8.3-10.6); CARBON DIOXIDE LEVEL 28 MMOL/L (20-31); CHLORIDE LEVEL 106 MMOL/L (98-107); CREATININE FOR GFR 0.75 MG/DL (0.55-1.30); GLOMERULAR FILTRATION RATE > 60.0 (>45); GLUCOSE, FASTING 94 MG/DL (74-106); POTASSIUM SERUM 4.2 MMOL/L (3.5-5.1); SODIUM LEVEL 139 MMOL/L (136-145)
[2024-02-01 12:00] VITALS: BP 136/76; TEMP 97.3; O2SAT 98
[2024-02-03 02:31] LABS: IGASUB2 146 mg/dL (46-378); IGASUB3 26 mg/dL (13-91); IgA SERUM (part of Subclasses) 187 mg/dL (70-320)
== END 2024-02-01 16:09 | disposition short-term general hospital (02) | DRG 466 ==
LOC: M ED 21:55 → M ED INP 01-27 00:33 → M MSPAV 01-27 02:30
PROVIDERS: ADMIT Student in an Organized Health Care Education/Training Program; ATTEND Student in an Organized Health Care Education/Training Program
PROC: B246ZZZ Ultrasonography of Right and Left Heart (ICD-10-PCS; principal; 2024-01-31)
DX: T83.512A Infection and inflammatory reaction due to nephrostomy catheter, initial encounter (principal); A41.51 Sepsis due to Escherichia coli [E. coli]; A41.81 Sepsis due to Enterococcus; N17.9 Acute kidney failure, unspecified; N13.30 Unspecified hydronephrosis; N12 Tubulo-interstitial nephritis, not specified as acute or chronic; J44.9 Chronic obstructive pulmonary disease, unspecified; I10 Essential (primary) hypertension; K21.9 Gastro-esophageal reflux disease without esophagitis; J45.909 Unspecified asthma, uncomplicated; B96.20 Unspecified Escherichia coli [E. coli] as the cause of diseases classified elsewhere; G50.0 Trigeminal neuralgia; Z96.643 Presence of artificial hip joint, bilateral; Z87.891 Personal history of nicotine dependence; R55 Syncope and collapse; Z79.51 Long term (current) use of inhaled steroids; Z91.040 Latex allergy status; Y84.6 Urinary catheterization as the cause of abnormal reaction of the patient, or of later complication, without mention of misadventure at the time of the procedure

== ENCOUNTER → 2024-02-14 | Outpatient (REF) | payer BC ==
[2024-02-14 16:46] LABS: BASO % 0.4 % (0.0-1.0); EOS # 0.3 10^3/uL (0.0-0.5); EOS % 2.9 % (0.0-3.0); HEMATOCRIT 32.5 % (36.0-47.0); HEMOGLOBIN 10.6 g/dl (12.0-15.5); LYMPH # 2.2 10^3/uL (1.5-5.0); LYMPH % 24.1 % (24.0-44.0); MEAN CORPUSCULAR HEMOGLOBIN 29.5 pg (27.0-33.0); MEAN CORPUSCULAR HGB CONC 32.6 g/dl (32.0-36.5); MEAN CORPUSCULAR VOLUME 90.5 fl (80.0-96.0); MONO # 0.7 10^3/uL (0.0-0.8); MONO % 7.5 % (2.0-8.0); NEUTROPHILS % 64.8 % (36.0-66.0); PLATELET COUNT, AUTOMATED 397 10^3/uL (150-450); RED BLOOD COUNT 3.59 10^6/uL (4.00-5.40); WHITE BLOOD COUNT 9.2 10^3/uL (4.0-10.0)
[2024-02-14 16:54] LABS: ERYTHROCYTE SEDIMENTATION RATE 46 mm/hr (0-30)
[2024-02-14 17:16] LABS: ALBUMIN 2.9 G/DL (3.2-5.2); ALKALINE PHOSPHATASE 94 U/L (46-116); ALT/SGPT 11 U/L (7.0-40); AST/SGOT 15 U/L (<34); BILIRUBIN,TOTAL 0.3 MG/DL (0.3-1.2); BLOOD UREA NITROGEN 19 MG/DL (9-23); CALCIUM LEVEL 8.7 MG/DL (8.3-10.6); CARBON DIOXIDE LEVEL 28 MMOL/L (20-31); CHLORIDE LEVEL 106 MMOL/L (98-107); CREATININE FOR GFR 0.82 MG/DL (0.55-1.30); GLOMERULAR FILTRATION RATE > 60.0 (>45); GLUCOSE, FASTING 107 MG/DL (74-106); POTASSIUM SERUM 4.6 MMOL/L (3.5-5.1); SODIUM LEVEL 141 MMOL/L (136-145); TOTAL PROTEIN 6.5 G/DL (5.7-8.2)
== END ==
LOC: M LAB REF 16:00
PROVIDERS: ATTEND Internal Medicine Infectious Disease
DX: A41.51 Sepsis due to Escherichia coli [E. coli] (principal)

== ENCOUNTER → 2024-02-18 | Outpatient (REF) | payer BC ==
[2024-02-18 17:16] LABS: APPEARANCE, URINE HAZY (CLEAR); BACTERIA, URINE AUTO 1+ (NEGATIVE); BILIRUBIN, URINE AUTO NEGATIVE (NEGATIVE); BLOOD, URINE BLOOD 2+ (NEGATIVE); COLOR, URINE YELLOW (YELLOW); GLUCOSE, URINE (UA) AUTO NEGATIVE (NEGATIVE); KETONE, URINE AUTO NEGATIVE (NEGATIVE); LEUKOCYTE ESTERASE, URINE AUTO 2+ (NEGATIVE); MUCUS, URINE SMALL (NEGATIVE); NITRITE, URINE AUTO NEGATIVE (NEGATIVE); PROTEIN, URINE AUTO 2+ mg/dL (NEGATIVE); RBC, URINE AUTO 52 /HPF (0-3); SPECIFIC GRAVITY URINE AUTO 1.009 (1.002-1.035); SQUAMOUS EPITHELIAL CELL UR AU 0 /HPF (0-6); UROBILINOGEN, URINE AUTO 0.2 mg/dL (0.0-2.0); WBC, URINE AUTO 18 /HPF (0-3)
== END ==
LOC: M LAB REF 16:30
PROVIDERS: ATTEND Urology
DX: N13.39 Other hydronephrosis (principal); N39.0 Urinary tract infection, site not specified; N20.1 Calculus of ureter

== ENCOUNTER → 2024-02-23 | Outpatient (CLI) | payer BC | LOC: M WHC 14:30 → EEVIPCON 14:45 | PROVIDERS: ATTEND Family Medicine | DX: Z12.31 Encounter for screening mammogram for malignant neoplasm of breast (principal) ==

== ENCOUNTER → 2024-03-16 | Outpatient (CLI) | payer BC | LOC: M LAB 16:49 | PROVIDERS: ATTEND Physician Assistant | DX: N13.30 Unspecified hydronephrosis (principal) ==

== ENCOUNTER → 2024-03-27 | Outpatient (CLI) | payer BC ==
[2024-03-27 16:39] LABS: BLOOD UREA NITROGEN 29 MG/DL (9-23); CALCIUM LEVEL 9.7 MG/DL (8.3-10.6); CARBON DIOXIDE LEVEL 26 MMOL/L (20-31); CHLORIDE LEVEL 109 MMOL/L (98-107); CREATININE FOR GFR 0.97 MG/DL (0.55-1.30); GLOMERULAR FILTRATION RATE > 60.0 (>45); GLUCOSE, FASTING 92 MG/DL (74-106); POTASSIUM SERUM 4.4 MMOL/L (3.5-5.1); SODIUM LEVEL 144 MMOL/L (136-145)
== END ==
LOC: M LAB 15:40
PROVIDERS: ATTEND Physician Assistant Medical
DX: N13.39 Other hydronephrosis (principal)

== ENCOUNTER 2024-05-08 16:03 | Emergency (ER) | payer BC ==
[~2024-05-08] VITALS: Ht 167.6 cm; Wt 95.7 kg
[2024-05-08 17:30] LABS: BASO % 0.5 % (0.0-1.0); EOS # 0.5 10^3/uL (0.0-0.5); EOS % 5.2 % (0.0-3.0); HEMATOCRIT 36.7 % (36.0-47.0); HEMOGLOBIN 11.6 g/dl (12.0-15.5); LYMPH # 2.2 10^3/uL (1.5-5.0); LYMPH % 24.9 % (24.0-44.0); MEAN CORPUSCULAR HEMOGLOBIN 28.7 pg (27.0-33.0); MEAN CORPUSCULAR HGB CONC 31.6 g/dl (32.0-36.5); MEAN CORPUSCULAR VOLUME 90.8 fl (80.0-96.0); MONO # 0.8 10^3/uL (0.0-0.8); MONO % 9.6 % (2.0-8.0); NEUTROPHILS # 5.2 10^3/uL (1.5-8.5); NEUTROPHILS % 59.6 % (36.0-66.0); PLATELET COUNT, AUTOMATED 298 10^3/uL (150-450); RED BLOOD COUNT 4.04 10^6/uL (4.00-5.40); WHITE BLOOD COUNT 8.7 10^3/uL (4.0-10.0)
[2024-05-08 17:51] LABS: LIPASE 53 U/L (12-53)
[2024-05-08 17:54] LABS: ALBUMIN 3.5 G/DL (3.2-5.2); ALKALINE PHOSPHATASE 79 U/L (35-104); ALT/SGPT 19 U/L (7.0-40); AST/SGOT 19 U/L (<34); BILIRUBIN,DIRECT < 0.1 MG/DL (<0.4); BILIRUBIN,TOTAL 0.2 MG/DL (0.3-1.2); BLOOD UREA NITROGEN 26 MG/DL (9-23); CALCIUM LEVEL 9.4 MG/DL (8.3-10.6); CARBON DIOXIDE LEVEL 29 MMOL/L (20-31); CHLORIDE LEVEL 106 MMOL/L (98-107); GLOMERULAR FILTRATION RATE 53.1 (>45); GLUCOSE, FASTING 89 MG/DL (74-106); POTASSIUM SERUM 4.3 MMOL/L (3.5-5.1); SODIUM LEVEL 141 MMOL/L (136-145); TOTAL PROTEIN 7.5 G/DL (5.7-8.2)
[2024-05-08] MEDS ORDERED: CIPR-249 PO (19:29)
[2024-05-08] MEDS: CIPROFLOXACIN 400 MG in IV 1 EA IV ONE (19:32)
[2024-05-08 20:47] VITALS: BP 153/85; TEMP 98; O2SAT 96
== END 2024-05-08 20:54 | disposition home or self-care (01) ==
LOC: M ED 16:03
DX: N10 Acute pyelonephritis (principal); Z91.040 Latex allergy status; Z79.51 Long term (current) use of inhaled steroids; Z79.2 Long term (current) use of antibiotics
CPT/HCPCS: 80048; 80076; 81001; 83690; 85025; 87086; 96374; 99284; J0744

== ENCOUNTER 2024-05-15 16:16 | Emergency (ER) | payer BC, MEDICARE ==
[~2024-05-15] VITALS: Ht 167.6 cm; Wt 95.6 kg
[~2024-05-15 16:16] MED LIST changes: +CIPR-249 PO
[2024-05-15] MEDS ORDERED: MELO7.5T35 (16:34)
[2024-05-15] MEDS ORDERED: LISI40TA4 (16:34)
[2024-05-15 18:27] LABS: BASO % 0.4 % (0.0-1.0); EOS # 0.6 10^3/uL (0.0-0.5); EOS % 6.2 % (0.0-3.0); HEMATOCRIT 38.6 % (36.0-47.0); HEMOGLOBIN 12.3 g/dl (12.0-15.5); LYMPH # 2.4 10^3/uL (1.5-5.0); LYMPH % 26.1 % (24.0-44.0); MEAN CORPUSCULAR HEMOGLOBIN 28.4 pg (27.0-33.0); MEAN CORPUSCULAR HGB CONC 31.9 g/dl (32.0-36.5); MEAN CORPUSCULAR VOLUME 89.1 fl (80.0-96.0); MONO % 10.5 % (2.0-8.0); NEUTROPHILS # 5.2 10^3/uL (1.5-8.5); NEUTROPHILS % 56.6 % (36.0-66.0); PLATELET COUNT, AUTOMATED 315 10^3/uL (150-450); RED BLOOD COUNT 4.33 10^6/uL (4.00-5.40); WHITE BLOOD COUNT 9.3 10^3/uL (4.0-10.0)
[2024-05-15 18:50] LABS: CALCIUM LEVEL 10.6 MG/DL (8.3-10.6); CREATININE FOR GFR 1.09 MG/DL (0.55-1.30); GLOMERULAR FILTRATION RATE 53.6 (>45); POTASSIUM SERUM 4.6 MMOL/L (3.5-5.1)
[2024-05-15] MEDS ORDERED: CIPR-249 PO (19:13)
[2024-05-15 19:34] VITALS: BP 150/90; TEMP 97.2; O2SAT 98
== END 2024-05-15 19:38 | disposition home or self-care (01) ==
LOC: M ED 16:16
DX: N13.39 Other hydronephrosis (principal); R30.0 Dysuria; I10 Essential (primary) hypertension; Z87.891 Personal history of nicotine dependence; Z91.040 Latex allergy status; Z79.51 Long term (current) use of inhaled steroids; Z79.899 Other long term (current) drug therapy

== ENCOUNTER → 2024-06-07 | Outpatient (CLI) | payer BC ==
[~2024-06-07] MED LIST changes: +ISOVUE-370 76% 100ML VIAL As Ordered ONE; +LISI40TA4; +MELO7.5T35
== END ==
LOC: M RAD 16:06
PROVIDERS: ATTEND Nurse Practitioner Family
DX: N13.39 Other hydronephrosis (principal)

== ENCOUNTER → 2024-07-04 | Outpatient (CLI) | payer BC ==
[~2024-07-04] MED LIST changes: -ISOVUE-370 76% 100ML VIAL As Ordered ONE
== END ==
LOC: M PLARAD 09:46
PROVIDERS: ATTEND Physician Assistant
DX: K68.2 Retroperitoneal fibrosis (principal); M54.89 Other dorsalgia; N13.30 Unspecified hydronephrosis; D48.3 Neoplasm of uncertain behavior of retroperitoneum
CPT/HCPCS: 78815; A9552

== ENCOUNTER → 2024-07-05 | Outpatient (REF) | payer BC ==
[2024-07-05 17:32] LABS: APPEARANCE, URINE HAZY (CLEAR); BACTERIA, URINE AUTO NEGATIVE (NEGATIVE); BILIRUBIN, URINE AUTO NEGATIVE (NEGATIVE); BLOOD, URINE BLOOD 2+ (NEGATIVE); COLOR, URINE YELLOW (YELLOW); GLUCOSE, URINE (UA) AUTO NEGATIVE (NEGATIVE); KETONE, URINE AUTO NEGATIVE (NEGATIVE); LEUKOCYTE ESTERASE, URINE AUTO 2+ (NEGATIVE); NITRITE, URINE AUTO NEGATIVE (NEGATIVE); PROTEIN, URINE AUTO NEGATIVE (NEGATIVE); RBC, URINE AUTO 2 /HPF (0-3); SPECIFIC GRAVITY URINE AUTO 1.012 (1.002-1.035); SQUAMOUS EPITHELIAL CELL UR AU 0 /HPF (0-6); UROBILINOGEN, URINE AUTO 0.2 mg/dL (0.0-2.0); WBC, URINE AUTO 27 /HPF (0-3)
== END ==
LOC: M SMT 17:07
PROVIDERS: ATTEND Specialist
DX: N32.81 Overactive bladder (principal)

== ENCOUNTER 2024-09-11 09:15 | Emergency (ER) | payer OTHER, BC ==
[~2024-09-11] VITALS: Ht 168.9 cm; Wt 94.1 kg
[2024-09-11 09:21] VITALS: TEMP 96.5
[2024-09-11 12:04] VITALS: BP 139/92; O2SAT 99
== END 2024-09-11 12:06 | disposition home or self-care (01) ==
LOC: M ED 09:15
DX: S60.944A Unspecified superficial injury of right ring finger, initial encounter (principal); Y92.9 Unspecified place or not applicable; Y93.9 Activity, unspecified; Y99.0 Civilian activity done for income or pay; W20.8XXA Other cause of strike by thrown, projected or falling object, initial encounter; I10 Essential (primary) hypertension; F10.10 Alcohol abuse, uncomplicated; Z91.040 Latex allergy status; Z79.51 Long term (current) use of inhaled steroids; Z79.2 Long term (current) use of antibiotics; Z79.899 Other long term (current) drug therapy

== ENCOUNTER → 2024-10-04 | Outpatient (CLI) | payer BC ==
[~2024-10-04] MED LIST changes: -FLOM0.4C39 PO; +LISI20TA33; +METO1TAB32; +TAMS-18 PO; +TROS20TA3
== END ==
LOC: M RAD 14:27
PROVIDERS: ATTEND Specialist
DX: N40.0 Benign prostatic hyperplasia without lower urinary tract symptoms (principal)

== ENCOUNTER 2024-11-23 10:55 | Inpatient (IN) | payer BC ==
[~2024-11-23] VITALS: Ht 167.6 cm; Wt 94.5 kg
[~2024-11-23 10:55] MED LIST changes: +LISI40TA10; +LISI40TA10 PO; -LISI40TA4; -LISI40TA4 PO; -METO1TAB32; +METO1TAB32 PO; -TROS20TA3; +TROS20TA3 PO
[2024-11-23] MEDS: NS (Normal Saline) 0.9% 1,000 ML IV ONE ×2 (13:25→19:48)
[2024-11-23 13:40] LABS: BASO # 0.0 10^3/uL (0.0-0.2); BASO % 0.1 % (0.0-1.0); EOS # 0.0 10^3/uL (0.0-0.5); EOS % 0.1 % (0.0-3.0); LYMPH # 0.8 10^3/uL (1.5-5.0); LYMPH % 5.2 % (24.0-44.0); MONO % 16.7 % (2.0-8.0); NEUTROPHILS # 12.2 10^3/uL (1.5-8.5); NEUTROPHILS % 77.5 % (36.0-66.0); PLATELET COUNT, AUTOMATED 325 10^3/uL (150-450)
[2024-11-23 13:47] LABS: ALT/SGPT 26.0 U/L (7.0-40); AST/SGOT 32.0 U/L (<34); MAGNESIUM LEVEL 1.9 MG/DL (1.8-2.4)
[2024-11-23 13:48] LABS: MONO # 2.6 10^3/uL (0.0-0.8)
[2024-11-23 14:10] LABS: INR 1.06
[2024-11-23 14:34] LABS: KETONE, URINE AUTO RFX NEGATIVE (NEGATIVE); MUCUS, URINE RFX SMALL (NEGATIVE); NITRITE, URINE AUTO RFX NEGATIVE (NEGATIVE); RBC, URINE AUTO RFX 19 /HPF (0-3); SQUAM EPITHELIAL CELL UR AURFX 0 /HPF (0-6)
[2024-11-23 14:39] LABS: LEUKOCYTE ESTERASE UR AUTO RFX 3+ (NEGATIVE); WBC, URINE AUTO RFX TNTC /HPF (0-3)
[2024-11-23] MEDS: cefTRIAXone SOD 1 GM in DEXTROSE 5% (D5W) ADV/MINI-BAG 50 ML IV ONE (14:48)
[2024-11-23] MEDS: NS 500 ML IV ONE (15:45)
[2024-11-23] MEDS ORDERED: PANT40TA29 PO (15:48)
[2024-11-23] MEDS: KETOROLAC 30 MG/ML 1 ML VIAL IV ONE (15:49)
[2024-11-23] MEDS ORDERED: HOME MED LIST COMPLETE! XX SCH (15:50)
[2024-11-23] MEDS: ACETAMINOPHEN *IV* 1,000 MG in IV 1 EA IV ONE (17:05)
[2024-11-23 17:09] LABS: CALCIUM LEVEL 8.1 MG/DL (8.3-10.6); CARBON DIOXIDE LEVEL 23.0 MMOL/L (20-31); CHLORIDE LEVEL 102.0 MMOL/L (98-107); CREATININE FOR GFR 1.55 MG/DL (0.55-1.30); GLOMERULAR FILTRATION RATE 36.7 (>45); POTASSIUM SERUM 4.5 MMOL/L (3.5-5.1); SODIUM LEVEL 136.0 MMOL/L (136-145)
[2024-11-23] MEDS: NACL IV ONE (17:29)
[2024-11-23] MEDS: MEROPENEM IV ONE (17:29)
[2024-11-23] MEDS ORDERED: NACL IV SCH (21:05)
[2024-11-23] MEDS ORDERED: MEROPENEM IV SCH (21:05)
[2024-11-23] MEDS: ACETAMINOPHEN 325 MG TAB PO PRN (21:26)
[2024-11-23] MEDS: NS (Normal Saline) 0.9% 1,000 ML IV SCH (21:29)
[2024-11-23 22:28] VITALS: BP 119/64; TEMP 101.9; O2SAT 98
[2024-11-23] MEDS ORDERED: MORPHINE 2 MG/ML 1 ML VIAL IV PRN (22:40)
[2024-11-23 22:45] VITALS: O2SAT 97
[2024-11-23] MEDS: DOCUSATE SODIUM 100 MG CAPSULE PO SCH (23:22)
[2024-11-23 23:23] VITALS: TEMP 100.2; O2SAT 94
[2024-11-23 23:46] VITALS: BP 92/54; TEMP 101.8; O2SAT 94
[2024-11-23 23:59] VITALS: BP 98/56; O2SAT 96
[2024-11-24] VITALS (12 sets, daily range): BP systolic 99–118; BP diastolic 55–64; TEMP 98.2–101.6; O2SAT 95–100
[2024-11-24] MEDS: NACL IV SCH (06:05)
[2024-11-24] MEDS: HEPARIN SOD 5000 UNITS/ML 1 ML VIAL/SYRINGE SC SCH (06:05)
[2024-11-24] MEDS: MEROPENEM IV SCH (06:05)
[2024-11-24] MEDS: LEVALBUTEROL 1.25 MG 0.5ML CONCENTRATE NEB INH PRN (06:16)
[2024-11-24 07:02] LABS: PLATELET COUNT, AUTOMATED 256 10^3/uL (150-450)
[2024-11-24 07:32] LABS: ALT/SGPT 20.0 U/L (7.0-40); AST/SGOT 21.0 U/L (<34); CALCIUM LEVEL 7.1 MG/DL (8.3-10.6); CARBON DIOXIDE LEVEL 21.0 MMOL/L (20-31); CHLORIDE LEVEL 108.0 MMOL/L (98-107); CREATININE FOR GFR 2.04 MG/DL (0.55-1.30); GLOMERULAR FILTRATION RATE 26.4 (>45); POTASSIUM SERUM 4.3 MMOL/L (3.5-5.1); SODIUM LEVEL 142.0 MMOL/L (136-145)
[2024-11-24] MEDS: METOPROLOL SUCC. 25 MG *XL* TAB PO SCH (08:43)
[2024-11-24] MEDS: MOM 30 ML SUSPENSION UDC PO PRN (08:47)
[2024-11-24] MEDS ORDERED: VENTAER INH (08:53)
[2024-11-24] MEDS ORDERED: FLUT1BLS8 IH (08:53)
[2024-11-24] MEDS ORDERED: ASCO500C3 PO (08:53)
[2024-11-24] MEDS ORDERED: FERR325T3 PO (08:53)
[2024-11-24] MEDS: FERROUS SULFATE 325 MG TAB PO SCH (21:21)
[2024-11-24] MEDS: PANTOPRAZOLE 40MG TAB PO SCH (21:21)
[2024-11-25] VITALS (8 sets, daily range): BP systolic 113–161; BP diastolic 66–86; TEMP 97.6–102.1; O2SAT 96–98
[2024-11-25 10:40] LABS: PLATELET COUNT, AUTOMATED 346 10^3/uL (150-450)
[2024-11-25 11:16] LABS: CALCIUM LEVEL 8.0 MG/DL (8.3-10.6); CARBON DIOXIDE LEVEL 22.0 MMOL/L (20-31); CHLORIDE LEVEL 107.0 MMOL/L (98-107); CREATININE FOR GFR 1.62 MG/DL (0.55-1.30); GLOMERULAR FILTRATION RATE 34.8 (>45); POTASSIUM SERUM 4.4 MMOL/L (3.5-5.1); SODIUM LEVEL 140.0 MMOL/L (136-145)
[2024-11-25] MEDS: MEROPENEM 2 GM in SODIUM CHLORIDE 0.9% INJ 100 ML IV SCH (17:57)
[2024-11-25] MEDS: LR 1,000 ML IV ONE (20:03)
[2024-11-26 00:13] VITALS: BP 104/55; TEMP 97.8; O2SAT 96
[2024-11-26 03:47] VITALS: BP 145/82; TEMP 97.2; O2SAT 96
[2024-11-26 07:34] VITALS: BP 118/70; TEMP 97.2; O2SAT 96
[2024-11-26 09:09] LABS: BASO # 0.0 10^3/uL (0.0-0.2); BASO % 0.3 % (0.0-1.0); EOS # 0.3 10^3/uL (0.0-0.5); EOS % 2.7 % (0.0-3.0); LYMPH # 1.1 10^3/uL (1.5-5.0); LYMPH % 11.3 % (24.0-44.0); MONO # 1.0 10^3/uL (0.0-0.8); MONO % 10.2 % (2.0-8.0); NEUTROPHILS # 7.5 10^3/uL (1.5-8.5); NEUTROPHILS % 74.5 % (36.0-66.0); PLATELET COUNT, AUTOMATED 344 10^3/uL (150-450)
[2024-11-26 09:59] LABS: ALT/SGPT 28.0 U/L (7.0-40); AST/SGOT 33.0 U/L (<34); CALCIUM LEVEL 8.4 MG/DL (8.3-10.6); CARBON DIOXIDE LEVEL 24.0 MMOL/L (20-31); CHLORIDE LEVEL 109.0 MMOL/L (98-107); CREATININE FOR GFR 1.42 MG/DL (0.55-1.30); GLOMERULAR FILTRATION RATE 40.8 (>45); POTASSIUM SERUM 4.1 MMOL/L (3.5-5.1); SODIUM LEVEL 142.0 MMOL/L (136-145)
[2024-11-26 15:41] VITALS: BP 133/76; TEMP 97.6; O2SAT 96
[2024-11-26] MEDS: LR 1,000 ML IV ONE (18:40)
[2024-11-26 19:29] VITALS: BP 124/59; TEMP 97.4; O2SAT 99
[2024-11-27 03:06] VITALS: BP 110/55; TEMP 98; O2SAT 94
[2024-11-27 05:57] LABS: PLATELET COUNT, AUTOMATED 316 10^3/uL (150-450)
[2024-11-27 06:32] LABS: ALT/SGPT 43.0 U/L (7.0-40); AST/SGOT 48.0 U/L (<34); CALCIUM LEVEL 8.3 MG/DL (8.3-10.6); CARBON DIOXIDE LEVEL 25.0 MMOL/L (20-31); CHLORIDE LEVEL 109.0 MMOL/L (98-107); CREATININE FOR GFR 1.31 MG/DL (0.55-1.30); GLOMERULAR FILTRATION RATE 44.9 (>45); MAGNESIUM LEVEL 1.8 MG/DL (1.8-2.4); POTASSIUM SERUM 4.0 MMOL/L (3.5-5.1); SODIUM LEVEL 145.0 MMOL/L (136-145)
[2024-11-27 07:51] VITALS: BP 145/69; TEMP 97.5; O2SAT 98
[2024-11-27] MEDS: LIDOCAINE 5% PATCH TD ONE (11:25)
[2024-11-27 12:12] VITALS: BP 131/79; TEMP 97.7; O2SAT 96
[2024-11-27 16:02] VITALS: BP 135/58; TEMP 97.6; O2SAT 97
[2024-11-27 19:23] VITALS: BP 160/82; TEMP 97.8; O2SAT 98
[2024-11-28 03:10] VITALS: BP 141/63; TEMP 98; O2SAT 96
[2024-11-28 06:50] LABS: PLATELET COUNT, AUTOMATED 348 10^3/uL (150-450)
[2024-11-28 07:13] LABS: ALT/SGPT 38.0 U/L (7.0-40); AST/SGOT 35.0 U/L (<34); CALCIUM LEVEL 8.6 MG/DL (8.3-10.6); CARBON DIOXIDE LEVEL 26.0 MMOL/L (20-31); CHLORIDE LEVEL 110.0 MMOL/L (98-107); CREATININE FOR GFR 1.12 MG/DL (0.55-1.30); GLOMERULAR FILTRATION RATE 54.2 (>45); MAGNESIUM LEVEL 1.6 MG/DL (1.8-2.4); POTASSIUM SERUM 4.6 MMOL/L (3.5-5.1); SODIUM LEVEL 145.0 MMOL/L (136-145)
[2024-11-28 07:57] VITALS: BP 158/83; TEMP 98; O2SAT 97
[2024-11-28] MEDS: MAG SULF 1GM/100ML (MAG RUN) 1 GM in IV 1 EA IV SCH (09:46)
[2024-11-28] MEDS ORDERED: SODIUM CHLORIDE 0.9% INJ 10 ML SYR IV PRN (14:50)
[2024-11-28] MEDS: SODIUM CHLORIDE 0.9% INJ 10 ML SYR IV SCH (15:03)
[2024-11-28] MEDS: ERTAPENEM SODIUM 1 GM in NS MINI-BAG PLUS 50 ML IV SCH (17:04)
== END 2024-11-28 18:00 | disposition home health service (06) | DRG 463 ==
LOC: M ED 10:55 → M ED INP 21:00 → M PCU 22:13
PROVIDERS: ADMIT Family Medicine; ATTEND Family Medicine
DX: N39.0 Urinary tract infection, site not specified (principal); N17.9 Acute kidney failure, unspecified; C78.6 Secondary malignant neoplasm of retroperitoneum and peritoneum; R78.81 Bacteremia; N13.30 Unspecified hydronephrosis; E83.51 Hypocalcemia; E83.42 Hypomagnesemia; J44.9 Chronic obstructive pulmonary disease, unspecified; Z93.6 Other artificial openings of urinary tract status; B96.20 Unspecified Escherichia coli [E. coli] as the cause of diseases classified elsewhere; I12.9 Hypertensive chronic kidney disease with stage 1 through stage 4 chronic kidney disease, or unspecified chronic kidney disease; K21.9 Gastro-esophageal reflux disease without esophagitis; G50.0 Trigeminal neuralgia; N18.9 Chronic kidney disease, unspecified; Z96.643 Presence of artificial hip joint, bilateral; Z79.899 Other long term (current) drug therapy; Z91.040 Latex allergy status; D63.8 Anemia in other chronic diseases classified elsewhere

== ENCOUNTER → 2024-12-04 | Outpatient (REF) | payer BC ==
[~2024-12-04] MED LIST changes: +ASCO500C3 PO; +FERR325T3 PO; +FLUT1BLS8 IH; +PANT40TA29 PO; +VENTAER INH
[2024-12-04 18:32] LABS: BASO # 0.0 10^3/uL (0.0-0.2); BASO % 0.4 % (0.0-1.0); EOS # 0.2 10^3/uL (0.0-0.5); EOS % 1.5 % (0.0-3.0); LYMPH # 1.9 10^3/uL (1.5-5.0); LYMPH % 16.8 % (24.0-44.0); MONO # 0.7 10^3/uL (0.0-0.8); MONO % 6.4 % (2.0-8.0); NEUTROPHILS # 8.1 10^3/uL (1.5-8.5); NEUTROPHILS % 73.9 % (36.0-66.0); PLATELET COUNT, AUTOMATED 650 10^3/uL (150-450)
[2024-12-04 18:44] LABS: ERYTHROCYTE SEDIMENTATION RATE 59 mm/hr (0-30)
[2024-12-04 19:03] LABS: C REACTIVE PROTEIN QUANTITATIV 0.99 MG/DL (<1.0)
[2024-12-04 19:04] LABS: ALT/SGPT 23.0 U/L (7.0-40); AST/SGOT 24.0 U/L (<34); CALCIUM LEVEL 8.8 MG/DL (8.3-10.6); CARBON DIOXIDE LEVEL 28.0 MMOL/L (20-31); CHLORIDE LEVEL 100.0 MMOL/L (98-107); CREATININE FOR GFR 1.07 MG/DL (0.55-1.30); GLOMERULAR FILTRATION RATE 57.3 (>45); POTASSIUM SERUM 4.6 MMOL/L (3.5-5.1); SODIUM LEVEL 142.0 MMOL/L (136-145)
== END ==
LOC: M LAB REF 17:33
PROVIDERS: ATTEND Internal Medicine Infectious Disease
DX: R78.81 Bacteremia (principal)

== ENCOUNTER → 2024-12-06 | Outpatient (CLI) | payer BC ==
[2024-12-06 07:36] VITALS: BP_DIAS 90; TEMP 98.6
[2024-12-06 09:00] VITALS: O2SAT 99
== END ==
LOC: M WHCPRO 07:30
PROVIDERS: ATTEND Specialist
DX: N63.24 Unspecified lump in the left breast, lower inner quadrant (principal); N63.22 Unspecified lump in the left breast, upper inner quadrant; R59.0 Localized enlarged lymph nodes; C77.3 Secondary and unspecified malignant neoplasm of axilla and upper limb lymph nodes
CPT/HCPCS: 10035; 19083; 19084; 38505; 77065; 88305; A4648

== ENCOUNTER → 2024-12-11 | Outpatient (REF) | payer BC ==
[2024-12-11 15:42] LABS: BASO # 0.1 10^3/uL (0.0-0.2); BASO % 0.7 % (0.0-1.0); EOS # 0.2 10^3/uL (0.0-0.5); EOS % 1.8 % (0.0-3.0); LYMPH # 1.8 10^3/uL (1.5-5.0); LYMPH % 20.0 % (24.0-44.0); MONO # 0.7 10^3/uL (0.0-0.8); MONO % 7.7 % (2.0-8.0); NEUTROPHILS # 6.2 10^3/uL (1.5-8.5); NEUTROPHILS % 69.5 % (36.0-66.0); PLATELET COUNT, AUTOMATED 466 10^3/uL (150-450)
[2024-12-11 15:48] LABS: ERYTHROCYTE SEDIMENTATION RATE 35 mm/hr (0-30)
[2024-12-11 16:11] LABS: C REACTIVE PROTEIN QUANTITATIV < 0.50 MG/DL (<1.0)
[2024-12-11 16:12] LABS: ALT/SGPT 19 U/L (7.0-40); AST/SGOT 23 U/L (<34); CALCIUM LEVEL 9.1 MG/DL (8.3-10.6); CARBON DIOXIDE LEVEL 27 MMOL/L (20-31); CHLORIDE LEVEL 103 MMOL/L (98-107); CREATININE FOR GFR 1.08 MG/DL (0.55-1.30); GLOMERULAR FILTRATION RATE 56.7 (>45); POTASSIUM SERUM 5.2 MMOL/L (3.5-5.1); SODIUM LEVEL 141 MMOL/L (136-145)
== END ==
LOC: M SHH 15:09
PROVIDERS: ATTEND Student in an Organized Health Care Education/Training Program
DX: R78.81 Bacteremia (principal)

== ENCOUNTER → 2025-01-16 | Outpatient (REF) | payer BC ==
[~2025-01-16] MED LIST changes: -IBUP-1022 PO; +IBUP600T42 PO; +LETR2.5T2 PO; +VERZ150T PO
[2025-01-16 18:19] LABS: APPEARANCE, URINE CLEAR (CLEAR); BACTERIA, URINE AUTO NEGATIVE (NEGATIVE); BILIRUBIN, URINE AUTO NEGATIVE (NEGATIVE); BLOOD, URINE BLOOD NEGATIVE (NEGATIVE); GLUCOSE, URINE (UA) AUTO NEGATIVE (NEGATIVE); KETONE, URINE AUTO NEGATIVE (NEGATIVE); LEUKOCYTE ESTERASE, URINE AUTO 1+ (NEGATIVE); NITRITE, URINE AUTO NEGATIVE (NEGATIVE); PROTEIN, URINE AUTO NEGATIVE (NEGATIVE); RBC, URINE AUTO 4 /HPF (0-3); SPECIFIC GRAVITY URINE AUTO 1.017 (1.002-1.035); SQUAMOUS EPITHELIAL CELL UR AU 0 /HPF (0-6); TRANSITIONAL EPITHELIAL AUTO <1 /HPF; UROBILINOGEN, URINE AUTO 0.2 mg/dL (0.0-2.0); WBC, URINE AUTO 19 /HPF (0-3)
== END ==
LOC: M SMT 16:51
PROVIDERS: ATTEND Nurse Practitioner Family
DX: R30.0 Dysuria (principal)

== ENCOUNTER → 2025-02-21 | Outpatient (CLI) | payer BC ==
[~2025-02-21] MED LIST changes: +ALLO100T PO; -COLC0.6T47 PO; +COLC0.6T53 PO
[2025-02-21 11:06] LABS: APPEARANCE, URINE CLEAR (CLEAR); BACTERIA, URINE AUTO NEGATIVE (NEGATIVE); BILIRUBIN, URINE AUTO NEGATIVE (NEGATIVE); BLOOD, URINE BLOOD NEGATIVE (NEGATIVE); GLUCOSE, URINE (UA) AUTO NEGATIVE (NEGATIVE); KETONE, URINE AUTO NEGATIVE (NEGATIVE); LEUKOCYTE ESTERASE, URINE AUTO NEGATIVE (NEGATIVE); NITRITE, URINE AUTO NEGATIVE (NEGATIVE); PROTEIN, URINE AUTO NEGATIVE (NEGATIVE); RBC, URINE AUTO 3 /HPF (0-3); SPECIFIC GRAVITY URINE AUTO 1.015 (1.002-1.035); SQUAMOUS EPITHELIAL CELL UR AU 0 /HPF (0-6); UROBILINOGEN, URINE AUTO 0.2 mg/dL (0.0-2.0); WBC, URINE AUTO 2 /HPF (0-3)
[2025-02-21 11:07] LABS: PLATELET COUNT, AUTOMATED 276 10^3/uL (150-450)
[2025-02-21 11:40] LABS: CALCIUM LEVEL 9.1 MG/DL (8.3-10.6); CARBON DIOXIDE LEVEL 28.0 MMOL/L (20-31); CHLORIDE LEVEL 107.0 MMOL/L (98-107); CREATININE FOR GFR 1.45 MG/DL (0.55-1.30); GLOMERULAR FILTRATION RATE 39.8 (>45); POTASSIUM SERUM 5.1 MMOL/L (3.5-5.1); SODIUM LEVEL 139.0 MMOL/L (136-145)
== END ==
LOC: M LAB 09:36
PROVIDERS: ATTEND Nurse Practitioner Family
DX: Z01.818 Encounter for other preprocedural examination (principal)

== ENCOUNTER 2025-02-23 11:07 | Day surgery (SDC) | payer BC ==
[~2025-02-23] VITALS: Ht 167.6 cm; Wt 91.0 kg
[~2025-02-23 11:07] MED LIST changes: +LIDOCAINE 2% 100 MG/5 ML SDV (FOR ANES.) As Ordered ONE; +MIDAZOLAM INJ 2 MG/2 ML VIAL As Ordered ONE; +ONDANSETRON 4MG 2ML VIAL As Ordered ONE; +dexAMETHasone 4 MG/ML 1 ML VIAL As Ordered ONE
[2025-02-23] MEDS: LR 1,000 ML IV SCH (12:30)
[2025-02-23] MEDS: ceFAZolin SOD 2 GM IV ONCE IV ONE (13:26)
[2025-02-23] MEDS: ISOVUE-300 61% 100 ML VIAL As Ordered ONE (14:10)
[2025-02-23] MEDS ORDERED: MORPHINE 4 MG/ML 1 ML VIAL IV PRN (14:25)
[2025-02-23] MEDS ORDERED: ONDANSETRON 4MG 2ML VIAL IV PRN ×2 (14:25→16:30)
[2025-02-23] MEDS ORDERED: ACETAMINOPHEN 325 MG TAB PO PRN (14:45)
[2025-02-23] MEDS ORDERED: ALBUTEROL 90 MCG/ACT 8 GM HFA INHALER INH PRN (14:45)
[2025-02-23] MEDS ORDERED: LETROZOLE 2.5 MG TAB PO SCH (16:00)
[2025-02-23] MEDS: LETROZOLE 2.5 MG TAB PO SCH (16:00)
[2025-02-23] MEDS ORDERED: OXYB5TAB14 PO (16:03)
[2025-02-23 16:05] VITALS: BP 160/91; TEMP 95.9; O2SAT 97
[2025-02-23 16:35] VITALS: BP 141/90; TEMP 97.4; O2SAT 97
[2025-02-23 17:35] VITALS: BP 141/91; TEMP 98.4; O2SAT 95
[2025-02-23 18:35] VITALS: BP 140/81; TEMP 98.4; O2SAT 96
[2025-02-23 19:35] VITALS: BP 139/78; TEMP 98.4; O2SAT 94
[2025-02-23] MEDS: ADVAIR HFA 230/21 MCG INHALER INH SCH (20:00)
[2025-02-24 06:34] VITALS: BP 161/87; TEMP 97.6; O2SAT 96
[2025-02-24] MEDS: TIOTROPIUM BROM 2.5MCG/ACTUATION 4GM INH INH SCH (08:00)
[2025-02-24] MEDS ORDERED: ENTER DRUG NAME HERE (PATIENT'S OWN MED) INH SCH (09:00)
[2025-02-24] MEDS ORDERED: FERROUS SULFATE 325 MG TAB PO SCH ×2 (09:00→16:00)
[2025-02-24 11:35] VITALS: BP 132/75; TEMP 98.4
[2025-02-24] MEDS ORDERED: METOPROLOL SUCC. 25 MG *XL* TAB PO SCH ×2 (16:00)
[2025-02-24] MEDS ORDERED: VERZENIO 150 MG PO SCH (16:00)
== END 2025-02-24 12:25 | disposition home or self-care (01) ==
LOC: M SDC 11:07 → M MS5PR 16:31 → M SDC 02-24 12:25
PROVIDERS: ATTEND Urology
DX: N13.1 Hydronephrosis with ureteral stricture, not elsewhere classified (principal); Q63.8 Other specified congenital malformations of kidney; C80.0 Disseminated malignant neoplasm, unspecified; D05.90 Unspecified type of carcinoma in situ of unspecified breast; C48.0 Malignant neoplasm of retroperitoneum; I10 Essential (primary) hypertension; G60.9 Hereditary and idiopathic neuropathy, unspecified; Z79.899 Other long term (current) drug therapy; Z88.6 Allergy status to analgesic agent; Z91.040 Latex allergy status; J44.9 Chronic obstructive pulmonary disease, unspecified; Z79.51 Long term (current) use of inhaled steroids; Z87.891 Personal history of nicotine dependence
CPT/HCPCS: 52332; 52351; 76000; 94640; C1769; C1894; C2617; J0688; J1100; J2250; J2405; J3010; Q9967

== ENCOUNTER → 2025-03-19 | Outpatient (REF) | payer BC ==
[~2025-03-19] MED LIST changes: -LIDOCAINE 2% 100 MG/5 ML SDV (FOR ANES.) As Ordered ONE; -MIDAZOLAM INJ 2 MG/2 ML VIAL As Ordered ONE; -ONDANSETRON 4MG 2ML VIAL As Ordered ONE; -dexAMETHasone 4 MG/ML 1 ML VIAL As Ordered ONE
[2025-03-19 17:45] LABS: APPEARANCE, URINE HAZY (CLEAR); BACTERIA, URINE AUTO NEGATIVE (NEGATIVE); BILIRUBIN, URINE AUTO NEGATIVE (NEGATIVE); BLOOD, URINE BLOOD 3+ (NEGATIVE); GLUCOSE, URINE (UA) AUTO NEGATIVE (NEGATIVE); KETONE, URINE AUTO NEGATIVE (NEGATIVE); LEUKOCYTE ESTERASE, URINE AUTO 3+ (NEGATIVE); NITRITE, URINE AUTO NEGATIVE (NEGATIVE); PROTEIN, URINE AUTO 2+ mg/dL (NEGATIVE); RBC, URINE AUTO 71 /HPF (0-3); SPECIFIC GRAVITY URINE AUTO 1.015 (1.002-1.035); SQUAMOUS EPITHELIAL CELL UR AU 0 /HPF (0-6); UROBILINOGEN, URINE AUTO 0.2 mg/dL (0.0-2.0); WBC, URINE AUTO 39 /HPF (0-3)
== END ==
LOC: M SMT 16:57
PROVIDERS: ATTEND Urology
DX: N39.0 Urinary tract infection, site not specified (principal)